=== PATIENT | female | born 1980 | race Caucasian/White ===

== ENCOUNTER 2024-08-18 13:27 | Outpatient (REF) | payer BC, SELFPAY ==
[2024-08-18 13:51] LABS: Amphetamine Screen Urine POSITIVE (Not Detect); Barbiturates, Urine Not Detected (Not Detect); Benzodiazepines Screen Urine Not Detected (Not Detect); Buprenorphine Scr Not Detected (Not Detect); Cannabinoid Screen Urine Not Detected (Not Detect); Cocaine Screen Urine Not Detected (Not Detect); Fentanyl, urine Not Detected (Not Detect); Methadone Screen, Urine Not Detected (Not Detect); Opiate Screen Urine Not Detected (Not Detect); Oxycodone Screen Urine Not Detected (Not Detect); Phencyclidine Screen Urine Not Detected (Not Detect)
== END 2024-08-18 13:28 | disposition home or self-care (01) ==
LOC: HO.LNP 13:27
PROVIDERS: Visit Provider Psychiatry & Neurology Psychiatry
DX: F10.90 Alcohol use, unspecified, uncomplicated (principal); F33.2 Major depressive disorder, recurrent severe without psychotic features; F41.1 Generalized anxiety disorder
CPT/HCPCS: 80307

== ENCOUNTER → 2024-08-19 08:35 | Outpatient (REF) | payer BC, SELFPAY ==
--- NOTE | 2024-08-19 08:40 | ECG_ITS ---
Test Reason : ROUTINE EKG Blood Pressure : */* mmHG Vent. Rate : 86 BPM Atrial Rate : 86 BPM P-R Int : 166 ms QRS Dur : 82 ms QT Int : 358 ms P-R-T Axes : 62 44 50 degrees QTcB Int : 428 ms Normal sinus rhythm Normal ECG No previous ECGs available Referred By: Jacqueline Chawla Electronically Signed By: GEORGIA STYLES MD
[2024-08-19 09:07] LABS: MANUAL DIFF FLAG NO
[2024-08-19 09:13] LABS: Basophils Percent Auto 0.4 % (0-2); Eosinophils Absolute Auto 0.1 X10*3/uL (0.0-0.4); Eosinophils Percent Auto 0.6 % (0-4); Hematocrit 49.3 % (37.0-47.0); Hemoglobin 17.3 g/dl (12.0-16.0); Imm Gran Abs Auto 0.02 X10*3/uL (0.00-0.03); Imm Gran Pct Auto 0.2 % (0.0-0.4); Lymphocytes Absolute Auto 1.1 X10*3/uL (1.2-4.9); Lymphocytes Percent Auto 12.8 % (20-40); Mean Corpuscular HGB Conc 35.1 g/dl (31.0-35.0); Mean Corpuscular Hemoglobin 30.5 pg (27.0-33.0); Mean Corpuscular Volume 86.9 fL (80.0-98.0); Mean Platelet Volume 9.5 fL (9.4-12.3); Monocytes Absolute Auto 0.4 X10*3/uL (0.1-1.2); Monocytes Percent Auto 4.5 % (2-11); Neutrophils Absolute Auto 6.7 x10*3/uL (2.0-8.3); Neutrophils Percent Auto 81.5 % (45-73); Platelet Count 279 X10*3/uL (160-400); Red Blood Count 5.67 X10*6/uL (4.20-5.50); Red Cell Distribution Width 12.9 % (11.0-16.0); White Blood Count 8.3 X10*3/uL (4.8-10.8)
[2024-08-19 09:25] LABS: Estimated Average Glucose 91 mg/dL; Hemoglobin A1C 131.1227 umol/L; Hemoglobin A1c % 4.8 % (<6.0)
[2024-08-19 09:50] LABS: Erythrocyte Sedimentation Rate 2 MM/HR (0-20)
[2024-08-19 10:18] LABS: Alanine Aminotransferase 52 U/L (0-31); Albumin Level 4.6 g/dL (3.5-5.0); Alkaline Phosphatase 99 U/L (39-117); Anion Gap 12 (12-20); Aspartate Amino Transferase 27 U/L (5-31); Bilirubin Total 0.5 mg/dL (0.0-1.0); Blood Urea Nitrogen 12 mg/dL (9-16); Calcium 10.2 mg/dL (8.4-10.2); Carbon Dioxide 29 mmol/L (22-29); Chloride 106 mmol/L (96-108); Cholesterol 187 mg/dL (<200); Estimated Glomerular Filt Rate > 60; Glucose Fasting 78 mg/dL (60-99); HDL Cholesterol 48 mg/dL (>40); Iron 92 mcg/dL (30-160); LDL Cholesterol Calculated 125 mg/dL (<100); Magnesium 2.3 mg/dL (1.6-2.6); Percent Iron Saturation 38 % (15-50); Potassium 4.7 mmol/L (3.3-5.1); Sodium 142 mmol/L (135-145); Total Iron Binding Capacity 243 mcg/dL (228-428); Total Protein 7.4 g/dL (6.5-8.0); Triglycerides 72 mg/dL (<150); Unsaturated Iron Binding 151 ug/dL
[2024-08-19 10:37] LABS: Folate 8.8 ng/mL (> or = 4.0); Vitamin B12 526 pg/mL (200-900)
[2024-08-19 10:38] LABS: Ferritin 232 ng/mL (20-250); Free T4 (Free Thyroxine) 0.97 ng/dL (0.71-1.85); Thyroid Stimulating Hormone 0.55 uIU/mL (0.32-4.0); Vitamin D 25-OH Total 40.9 ng/mL (>30)
[2024-08-19 10:56] LABS: Parathyroid Hormone Intact 38.2 pg/mL (8.7-77.1)
[2024-08-22 17:59] LABS: Homocysteine 17.5 umol/L (<10.4)
== END ==
LOC: HO.CARD 08:35
PROVIDERS: PCP Family Medicine; Visit Provider Psychiatry & Neurology Psychiatry
DX: F39 Unspecified mood [affective] disorder (principal); Z13.6 Encounter for screening for cardiovascular disorders; Z13.1 Encounter for screening for diabetes mellitus
CPT/HCPCS: 36415; 80053; 80061; 82306; 82550; 82607; 82728; 82746; 83036; 83090; 83540; 83735; 83921; 83970; 84100; 84425; 84439; 84443; 85025; 85652; 93005

== ENCOUNTER → 2024-08-19 08:40 | Outpatient (BNV) | payer BC, SELFPAY | PROVIDERS: PCP Family Medicine; Visit Provider Internal Medicine Cardiovascular Disease | DX: Z13.6 Encounter for screening for cardiovascular disorders (principal) | CPT/HCPCS: 93010 ==

== ENCOUNTER → 2024-08-22 10:30 | Outpatient (BNV) | payer BC, SELFPAY | PROVIDERS: Visit Provider Psychiatry & Neurology Psychiatry | DX: F34.89 Other specified persistent mood disorders (principal); F41.1 Generalized anxiety disorder; F43.10 Post-traumatic stress disorder, unspecified; F10.90 Alcohol use, unspecified, uncomplicated; Z86.59 Personal history of other mental and behavioral disorders | CPT/HCPCS: 99214; 99499 ==

== ENCOUNTER 2024-09-05 14:13 | Outpatient (REF) | payer BC, SELFPAY ==
[2024-09-05 14:58] LABS: Appearance Urine Clear; Color Urine Yellow; Glucose Urine UA Negative (Negative); Leukocyte Esterase Urine Trace (Negative); Nitrite Urine Negative (Negative); PH 5.5 (5.0-9.0); Specific Gravity - Urine <= 1.005 (1.005-1.025); UMIC TRIGGER UACC YES; Urine Blood Negative (Negative); Urine Ketones Negative (Negative); Urine Protein Negative (Neg-Trace)
[2024-09-05 14:59] LABS: Baso%MD 0.7 %; Eos%MD 0.7 %; Hematocrit 44.3 % (42.0-52.0); Hemoglobin 15.2 g/dl (14.0-18.0); IG%MD 0.2 %; Lymph%MD 20.5 %; Mean Corpuscular HGB Conc 34.3 g/dl (31.0-36.0); Mean Corpuscular Hemoglobin 30.9 pg (27.0-33.0); Mean Platelet Volume 10.2 fL (9.4-12.4); Mono%MD 4.4 %; Neut%MD 73.5 %; Platelet Count 239 X10*3/uL (160-400); Red Blood Count 4.92 X10*6/uL (4.60-5.80); Red Cell Distribution Width 12.9 % (11.0-16.0); White Blood Count 5.7 X10*3/uL (4.8-10.8)
[2024-09-05 15:03] LABS: Bacteria Urine None Seen (None Seen); Hyaline Casts Urine 0-2 /LPF (0-2); RBC Urine 0-2 /HPF (0-2); Squamous Epithelial Cell Urine 0-2 /HPF (0-2); WBC Urine 0-5 /HPF (0-5)
[2024-09-05 15:27] LABS: Estimated Glomerular Filt Rate > 60; Uric Acid 6.1 mg/dL (3.4-7.0)
[2024-09-05 15:42] LABS: Basophils Abs Manual 0.1 X10*3/uL (0.0-0.2); Basophils Percent Manual 2 % (0-2); Eosinophils Absolute Manual 0.1 X10*3/uL (0.0-0.4); Eosinophils Percent Manual 1 % (0-4); Lymphocytes Absolute Manual 0.9 X10*3/uL (1.2-4.9); Lymphocytes Percent Manual 15 % (20-40); Monocytes Absolute Manual 0.3 X10*3/uL (0.1-1.2); Monocytes Percent Manual 6 % (2-11); Neutrophils Percent Manual 76 % (45-73)
[2024-09-05 15:43] LABS: Platelet Estimate NORMAL (NORMAL); Platelet Morphology Comment NORMAL; RBC Morphology NORMAL
[2024-09-05 15:53] LABS: Lithium 0.11 mmol/L (0.60-1.20)
[2024-09-05 16:45] LABS: Band Neutrophils Percent 0 % (3-5); Neutrophils Absolute Manual 4.3 X10*3/uL (2.0-8.3)
[2024-09-06 05:04] LABS: Follicle Stimulating Hormone 31.3 mIU/mL (1.4-12.8); Lutenizing Hormone 19.9 mIU/mL (1.5-9.3); Sex Hormone Binding Globulin 59 nmol/L (10-50)
[2024-09-06 22:39] LABS: Erythropoietin (EPO) 9.1 mIU/mL (2.6-18.5)
[2024-09-09 16:39] LABS: Testosterone, Free 111.3 pg/mL (35.0-155.0); Testosterone, Total 708 ng/dL (250-1100)
[2024-09-17 04:32] LABS: Estradiol Ultra Sensitive 29 pg/mL (< OR = 29)
[2024-09-22 18:02] LABS: Progesterone <0.1 ng/mL (< OR = 0.2)
== END 2024-09-05 14:14 | disposition home or self-care (01) ==
LOC: HO.LAB 14:13
PROVIDERS: PCP Family Medicine; Visit Provider Psychiatry & Neurology Psychiatry
DX: Z13.89 Encounter for screening for other disorder (principal)
CPT/HCPCS: 36415; 80178; 81001; 82565; 82668; 82670; 83001; 83002; 84144; 84270; 84402; 84403; 84550; 85007; 85027

== ENCOUNTER 2024-09-23 11:00 | Outpatient (RCR) | payer BC, SELFPAY ==
[2024-08-17 12:17] VITALS: BMI 25.8
[2024-08-17 12:18] VITALS: BP 122/80; PULSE 80; TEMP 36.7
--- NOTE | 2024-08-17 13:51 | PC.ADMIT ---
Patient is a 43 year old trans male who uses they/he pronouns who was advised by his psychiatrist and therapist to attend [facility] d/t increased depression and anxiety sxs. Patient reports many stresses including realtionship stresses with his along with losing his job at the end of October and is unable to find a job in his profession in this area. Stated he, his and two children have lived in this area for 10 years. Previously lived in [place]. Patient is alert and oriented x4. He is calm and cooperative. He presented with depressed mood and anxious affect. He denied SI at present. Patient did state, I have had suicidal thoughts. Not plans to like kill myself but to harm myself Patient reports long history of self harm by cutting his thighs. Patient reports he could reach out to his therapist of PCP if needed stating, My therapist is really responsive. Seeing therapist twice a week and my PCP definitely has stood in for a therapist in a lot of ways for me. She does my hormones and she supported me coming out to my family. I could contact her if i needed to . Patient was given a copy of his safety plan if needed. Patient also reports long history of cutting his thighs since age 18. Last time he cut himself was yesterday. Asked what he could do when feeling strong emotions instead of self harm he stated exercise helps and human touch. Patient reports he drinks one beer daily for the past 5 years and will drink 3 drinks when out with friends about once a month. Patient concerned this could become a problem for him thus is attending [facility] groups while at [facility]. Medications reconciled with patient and patient's pharmacy. He reports he is taking medications as prescribed.
--- NOTE | 2024-08-18 12:42 | P.HPPSP_ITS ---
HPI Date of Service: 08/18/24 Chief Complaint: MDD Sources of Information: patient interviewed, chart reviewed and crisis/core team assessment reviewed HPI Narrative: Patient is an employed, 44-year-old trans male with history of mood disorder, depression, suicidal ideation and behaviors, self-harming self harming, problems with chronic impulse control and emotional dysregulation, previous inpatient hospitalizations. He reports reaching out to his PCP office for referral after ?having a rough time? last weekend. Patient reports working in [employer] at [employer] for the past 2 years. 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 He applied to 2 jobs out of state but would require moving to [place] or [place], in my necessitate him living there for a year as a trial prior to moving his and children. He also reports stressors within the marriage. Has been together with partner for 18 years, for 12 years and for the past 10 years things have been ?tough? especially since their daughters was born. He reports beginning his transition about 6 years ago. He has been on Prozac since his 20s and and is currently managed on a regime of medications which also include Wellbutrin XL, Vyvanse, Trileptal, Geodon, and gabapentin. He feels that trying to address some of his trauma may have been destabilizing in recent years. He shares complex family history which includes his paternal grandmother who had terminal illness and by ?DIY- patient assisted suicide? at the hands of patient's paternal grandfather who then killed himself. Both by GSW. Past Psychiatric History: Previous IPLOCs, last admission was 2018 at [facility] PHP: None Previous medication trials: Prozac, Wellbutrin XL, BuSpar, Strattera, Abilify, Latuda, Geodon, Risperdal (helped with impulsive behaviors but not w depression), Zyprexa x1 week, propranolol, gabapentin, prazosin, possibly Vraylar CURRENT MEDICATIONS: Vyvanse 70 mg daily? Wellbutrin XL 150 mg daily Fluoxetine 60 mg daily Oxcarbazepine 600 mg b.i.d. Ziprasidone 20 mg daily at bedtime Hydroxyzine 10-20 mg b.i.d. PRN anxiety Finasteride 2.5 mg daily Testosterone cypionate (200 mg/mL) 0.4 mL subcut weekly Zepbound 15 mg subcutaneous Q weekly [facility] Medical History (Updated 08/26/24 @ 10:20 by Jacqueline Chawla MD) Asthma Herniation of intervertebral disc at L3-L4 level Chronic back pain Surgical History (Updated 08/17/24 @ 12:15 by Ursula Falcon RN) H/O: hysterectomy H/O mastectomy Diagnostics Vital Signs (24Hr): BMI result Body Mass Index 25.8 Meds/Allergies Meds Home Medications ?Medication ?Instructions ?Recorded ?Confirmed ?Type bupropion HCl 150 mg 24 hr tablet, 150 mg PO DAILY 08/17/24 08/17/24 History extended release finasteride 5 mg tablet 2.5 mg PO DAILY 08/17/24 08/17/24 History fluoxetine 20 mg capsule 60 mg PO DAILY 08/17/24 08/17/24 History gabapentin 100 mg capsule See Rx Instructions .Route .COMPLEX 08/17/24 08/17/24 History hydroxyzine HCl 10 mg tablet 10 - 20 mg PO BID PRN Anxiety 08/17/24 08/17/24 History lisdexamfetamine 70 mg capsule 70 mg PO DAILY 08/17/24 08/17/24 History testosterone cypionate 200 mg/mL See Rx Instructions .Route .COMPLEX 08/17/24 08/17/24 History intramuscular oil tirzepatide (weight loss) 15 15 mg subcut QWEEK 08/17/24 08/17/24 History mg/0.5 mL subcutaneous pen injector (Zepbound) Allergies Allergies Allergy/AdvReac Type Severity Reaction Status Date / Time No Known Allergies Allergy Verified 08/17/24 12:15 Mental Status Exam Mental Status Exam Narrative: Alert, oriented, in no acute distress. Calm, cooperative, engaged. Uptight, muscle tension, physically withdrawn. No psychomotor agitation or neurovegetative retardation. Eye contact intermittent. Mood depressed, affect constricted. Speech normal, mildly delayed when occupied in articulating thoughts.. Thought process linear, coherent. Thought content related to stressors, fears of abandonment, transient helplessness, denies hopelessness, denies SI or HI. Intermittent thoughts of self harm, denies acting on these thoughts in interim. No paranoia or delusional content elicited. No evidence of psychosis. Insight and judgment - fair but adequate. Assessment & Plan Assessment & Plan (1) MDD (major depressive disorder), recurrent severe, without psychosis: Status: Acute Code(s): F33.2 - Major depressive disorder, recurrent severe without psychotic features (2) Other specified persistent mood disorders: Status: Acute Code(s): F34.89 - Other specified persistent mood disorders (3) Alcohol use disorder: Status: Acute Code(s): F10.90 - Alcohol use, unspecified, uncomplicated (4) MARY (generalized anxiety disorder): Status: Acute Code(s): F41.1 - Generalized anxiety disorder (5) Complex posttraumatic stress disorder: Status: Acute Code(s): F43.10 - Post-traumatic stress disorder, unspecified Plan Admit to PHP VS reviewed: afebrile, BP 122/80;?80 bpm continue other regular medications Vyvanse 70 mg daily? Wellbutrin XL 150 mg daily Fluoxetine 60 mg daily Oxcarbazepine 600 mg b.i.d. Ziprasidone 20 mg daily at bedtime Hydroxyzine 10-20 mg b.i.d. PRN anxiety Finasteride 2.5 mg daily Testosterone cypionate (200 mg/mL) 0.4 mL subcut weekly Zepbound 15 mg subcutaneous Q weekly Routine lab work ordered as indicated EKG, routine for baseline QTc for medication considerations as indicated UDS as indicated MassPat reviewed Continue to monitor as per protocol Patient educated on: diagnosis, medication risk/benefits and substance abuse Informed Consent: understands Reason for continued partial hosp. stay Substantial Risk for: harm to self, inability to function, rapid decompensation and med/psych decompensation Certification I certify that partial hospital treatment is medically necessary due to the symptoms and problems resulting from the patient's mental illness and the failure to treat the patient at the partial hospital level of care would likely result in the patient requiring inpatient psychiatric care which could not be prevented at a less intensive level of care. Time Spent With Patient Time: Total time managing care of this patient today __90__ minutes.
--- NOTE | 2024-08-18 15:26 | HO.PHP ---
Pt's case was opened and reviewed in treatment team.
--- NOTE | 2024-08-19 14:41 | HO.PHP ---
This newspaper writer met with Jonny at the end of the day stating he is dysregulated. He reported the urge to self-harm is high during this time especially on a Thursday. This newspaper writer explored during treatment plan review his hx of self-harming behavior. His last time self-harming was Thursday. He shared it has been infrequent during his adult life, he started at age [age], and it correlates with abandonment issues. There has been an increase in thoughts the last couple weeks. This newspaper writer explored why this time was triggering in which he stated he has his child's soccer game was at 5. He stated that he had plans to go on a hike with his dog, but he struggles with self-harm historically on hikes and in his car. This newspaper writer encouraged calling his outpatient supports to update them on the plan with treatment plan review. If no success, he could call crisis lines in which a couple experiences he has had were helpful in the past. This newspaper writer also suggested maybe trying to hike or even walk in a different location that is less triggering. All these suggestions appeared receptive. Pt left program for the day and reported no immediate safety concerns.
--- NOTE | 2024-08-22 20:23 | P.EN_ITS ---
Event Note Date of Service: 08/23/24 Event Note: Return call to Rafia Tamayo [phone], therapist for Jonny. She she is reaching out to me to update me on Jonny who has spent the night in the emergency room at [facility] last night. He had self presented upon the encouragement of his therapist and PCP after a severe bout of self-harm which required medical attention/stitches in his upper left shoulder. He was evaluated by CS so however was felt not to meet criteria for inpatient stay. Therapist had encouraged due to stay overnight for observation in the emergency room and they had agreed for due to discharged straight back to partial this morning. He is in attendance today. Therapist notes that the situation is difficult. Apparently Jonny had cut himself at the prospect of possibly not getting to continue doing therapy with Rafia while he is at partial. Therapist and PCP Dr. Jade Moser both agree that this is unattainable and had advised for IPLOC to [facility] given their level of concern. He said that [facility] did not outright refuse but is reluctant to go and has been feeling out whether or not he will need to. Therapist shares their hopes that this radio news writer will be supportive of their stance as his outpatient providers, and is certainly concerning situation especially with Jonny stance in regards to seeing his therapist. I plan to meet with patient later today and will discuss. Time Spent With Patient Time: Total time managing care of this patient today __15__ minutes.
--- NOTE | 2024-08-22 20:24 | P.PNPSP_ITS ---
Subjective Subjective Date of Service: 08/22/24 Reason For Visit: MDD Interim History: I meet with Kassi who also shares these events from over the weekend. Things are left currently up in the air. Jonny says he does not want to go inpatient but he also does not want to lose his therapist and is trying to stress out if this will be a deal Breaker whether or not he complies with their recommendations for inpatient. He cites reasons of chronic fears of abandonment as rationale for continuing to work with his therapist while he is at [facility]. He does not seem to have insight as to how he is inadvertently min trying to manipulate his therapist into complying or had otherwise self-harm. He is his current stance is that he would like not to go to inpatient but is only willing to go if he understood that he would not be able to see his therapist anymore. Due to roommate tense but able to have an effective conversation shares struggles with emotional regulation does not feel his medication has been very helpful he continues on ziprasidone 40 mg at night and has not tried to take this as a 20 mg dose during the day to see if this can help curb some of the impulsive aggression. Trileptal has been perhaps helpful for irritability but just reports still feeling very depressed, anxious describes a lot of physical anxiety muscle tension palpitations feeling on edge. Feels readily able to start having panic symptoms. He is noted to be on combination of Wellbutrin Prozac and Vyvanse in the morning without a beta-epi or alpha agonist to help mitigate some of the physical activation of these medications. He is open to starting guanfacine to see if he can better tolerate these medications and cut down on anxiety anxiety. Alternatively could try prazosin as well for physical anxiety. We discussed starting Lamictal. We also discussed whether lithium would be helpful in treating depression mood disorder impulsivity self-harm SI tightened emotional regulation. He currently denies any thoughts of harming self or others he currently denies any SI but shares having a lot of anticipatory dread over whether he may lose his therapist which he says only reinforces his fear of abandonment. Medication Compliance: Yes Side effects from medications: No Attending Groups: Yes Review of Systems Acute medical concerns: No Diagnostics Vital Signs (24Hr): BMI result Body Mass Index 25.8 Assessment & Plan Assessment & Plan (1) Other specified persistent mood disorders: Status: Acute Code(s): F34.89 - Other specified persistent mood disorders (2) MARY (generalized anxiety disorder): Status: Acute Code(s): F41.1 - Generalized anxiety disorder (3) Complex posttraumatic stress disorder: Status: Acute Code(s): F43.10 - Post-traumatic stress disorder, unspecified (4) Alcohol use disorder: Status: Acute Code(s): F10.90 - Alcohol use, unspecified, uncomplicated (5) History of borderline personality disorder: Status: Acute Code(s): Z86.59 - Personal history of other mental and behavioral disorders Plan Continue PHP start lamotrigine 25 mg qd start guanfacine ER 1 mg qam along with WB, Vyv (vs prazosin) cont Vyvanse 70 mg daily (lower?)? cont Wellbutrin XL 150 mg daily cont fluoxetine 60 mg daily cont oxcarbazepine 600 mg b.i.d. (consider transitioning to a different SGA cont ziprasidone 40 mg daily at bedtime start ziprasodine 20 mg daily PRN agitation (if ineffective, will trial risperidone vs older cont hydroxyzine 10-20 mg b.i.d. PRN anxiety continue other regular medications: Finasteride 2.5 mg daily, estosterone cypionate (200 mg/mL) 0.4 mL subcut weekly Zepbound 15 mg subcutaneous Q weekly Routine lab work reviewed VS reviewed: afebrile, BP 122/80;?80 bpm Continue to monitor as per protocol Patient educated on: diagnosis and medication risk/benefits Informed Consent: understands Reason for contiued partial hosp. stay Substantial Risk for: inability to function and med/psych decompensation Certification I certify that partial hospital treatment is medically necessary due to the symptoms and problems resulting from the patient's mental illness and the failure to treat the patient at the partial hospital level of care would likely result in the patient requiring inpatient psychiatric care which could not be prevented at a less intensive level of care. Total time managing care of this patient today __60__ minutes. Discharge Plan Discharge Attending provider: Jacqueline Chawla Medications: New guanfacine 1 mg tablet extended release 24 hr 1 mg PO DAILY Qty: 30 0RF lamotrigine 25 mg tablet 25 mg PO DAILY 14 Days Qty: 14 0RF Continued ziprasidone HCl 20 mg capsule 20 mg PO BEDTIME oxcarbazepine 600 mg tablet 600 mg PO BID gabapentin 100 mg capsule See Rx Instructions .ROUTE .COMPLEX Rx Instructions: Take one capsule in the morning and two capsules in the evening. testosterone cypionate 200 mg/mL oil See Rx Instructions .ROUTE .COMPLEX Rx Instructions: Take 0.4 ml once a week. Patient takes on . hydroxyzine HCl 10 mg tablet 10 - 20 mg PO BID PRN (Reason: Anxiety) fluoxetine 20 mg Capsule 60 mg PO DAILY Rx Instructions: Take three caps daily. finasteride 5 mg tablet 2.5 mg PO DAILY bupropion HCl 150 mg tablet extended release 24 hr 150 mg PO DAILY lisdexamfetamine 70 mg capsule 70 mg PO DAILY No Action Zepbound 15 mg/0.5 mL pen injector 15 mg SUBCUT QWEEK Print Language: Singaporean
--- NOTE | 2024-08-24 15:15 | HO.PHP ---
Jonny left group 10 minutes early and did not return, repairer typewriter checked in with Jonny after group around 11:45. Pt stated he was struggling to focus because financial stressors and concerns about work and providers were on his mind. Jonny expressed worries of finding a new job, feels he may have to consider going on disability and feels that is a lot to process. Pt expressed a desire to work but worries his mental health impacts his ability to function. Pt shared he has a fear of abandonment and recognizes he gets attached in an unhealthy way with caregivers. States he has an appt with his PCP tomorrow and feels worried she will stop seeing him due to his increased reliance on her, stated he called her on Thursday after he self-harmed. Stated she supported him through his crisis evaluation at the ED in [facility], but he felt she was upset, stated he asked her if she was mad and she said no but did express feeling worried about him. Pt stated he recognizes he has over-utilized her support and feels she will set a boundary. Jonny expressed insight, recognizes boundaries increase feelings of abandonment but also expressed a strong desire to respect the boundaries of others and have healthy relationships without feeling rejected or panic . Jonny and this repairer typewriter were able to come up with ways to cope after his meeting with his PCP to prevent self-harming should she set a boundary. Pt acknowledged he engages in self-harm after he feels rejected or abandoned and struggles to use healthier alternatives because they do not provide the same relief. Jonny was encouraged to engage in the alternatives with a supportive peer, he was also provided with a Wellness Recovery Action Plan to complete on his own that identifies what he, his supports and providers can do to best help him when he is in distress, then pt was encouraged to share the plan with his and his PCP. Jonny agreed. Jonny was also provided info to 3 different respites: [facility], [facility] in [place] and [facility], as alternatives to inpatient since pt expressed a strong desire to prevent hospitalization. Pt was also provided a resource for his employment/financial situation. Jonny expressed gratitude for meeting with repairer typewriter 1:1, expressed feeling much better after speaking, Jonny did not report SI, denied thoughts to self-harm. Pt returned to group. Pt affect improved during conversation, anxious, tense, slow to processing observed, then some brightening affect and increased hope with options and plans in place.
--- NOTE | 2024-08-24 23:14 | HO.PHPPROGNO ---
Subjective Subjective Date of Service: 08/23/24 Reason For Visit: MDD Diagnostics Vital Signs (24Hr): BMI result Body Mass Index 25.8 Assessment & Plan Assessment & Plan (1) Borderline personality disorder: Status: Acute Code(s): F60.3 - Borderline personality disorder Plan Continue PHP continue lamotrigine 25 mg qd continue guanfacine ER 1 mg qam along with WB, Vyv (vs prazosin) cont Vyvanse 70 mg daily (lower?)? cont Wellbutrin XL 150 mg daily cont fluoxetine 60 mg daily cont oxcarbazepine 600 mg b.i.d. (consider transitioning to a different SGA cont ziprasidone 40 mg daily at bedtime start ziprasodine 20 mg daily PRN agitation (if ineffective, will trial risperidone vs older cont hydroxyzine 10-20 mg b.i.d. PRN anxiety continue other regular medications: Finasteride 2.5 mg daily, estosterone cypionate (200 mg/mL) 0.4 mL subcut weekly Zepbound 15 mg subcutaneous Q weekly Routine lab work reviewed VS reviewed: afebrile, BP 122/80;?80 bpm Continue to monitor as per protocol Certification I certify that partial hospital treatment is medically necessary due to the symptoms and problems resulting from the patient's mental illness and the failure to treat the patient at the partial hospital level of care would likely result in the patient requiring inpatient psychiatric care which could not be prevented at a less intensive level of care. Total time managing care of this patient today ____ minutes. Discharge Plan Discharge Attending provider: Jacqueline Chawla Medications: New risperidone 0.25 mg tablet 0.25 mg PO BID Qty: 60 0RF risperidone 1 mg tablet 1 mg PO BID Qty: 30 0RF lurasidone 40 mg tablet 40 mg PO QPM Qty: 30 0RF Rx Instructions: must administer with food (at least 350 calories) gabapentin 300 mg capsule 300 mg PO TID Qty: 30 0RF lithium carbonate 300 mg tablet extended release 300 mg PO DAILY Qty: 14 0RF gabapentin 600 mg tablet 600 mg PO TID Qty: 30 0RF lisdexamfetamine 50 mg capsule 50 mg PO QAM Qty: 10 0RF Rx Instructions: Partial Fill upon patient request. naltrexone 50 mg tablet 25 mg PO BEDTIME Qty: 20 0RF levomefolate calcium 7.5 mg tablet 7.5 mg PO DAILY Qty: 30 2RF clonazepam 0.5 mg tablet 0.5 mg PO DAILY Qty: 16 0RF Continued testosterone cypionate 200 mg/mL oil See Rx Instructions .ROUTE .COMPLEX Rx Instructions: Take 0.4 ml once a week. Patient takes on . hydroxyzine HCl 10 mg tablet 10 - 20 mg PO BID PRN (Reason: Anxiety) fluoxetine 20 mg Capsule 60 mg PO DAILY Rx Instructions: Take three caps daily. finasteride 5 mg tablet 2.5 mg PO DAILY bupropion HCl 150 mg tablet extended release 24 hr 150 mg PO DAILY lorazepam 0.5 mg tablet 0.5 mg PO DAILY PRN (Reason: anxiety) Qty: 12 0RF prazosin 1 mg capsule 1 mg PO BID Qty: 60 0RF Rx Instructions: =Dose Change= (Patient takes 3 mg BID) Changed lamotrigine 25 mg tablet See Rx Instructions .ROUTE .COMPLEX Qty: 90 0RF Rx Instructions: take 2 tablets po daily x 2 weeks, then increase to 3 tablets po daily prazosin 2 mg capsule 2 mg PO BID Qty: 60 0RF Rx Instructions: =Dose Change= (Patient takes 3 mg BID) gabapentin 100 mg capsule 100 mg PO TID Qty: 30 0RF Discontinued ziprasidone HCl 20 mg capsule 20 mg PO BEDTIME oxcarbazepine 600 mg tablet 600 mg PO BID lisdexamfetamine 70 mg capsule 70 mg PO DAILY No Action Zepbound 15 mg/0.5 mL pen injector 15 mg SUBCUT QWEEK Stand Alone Forms: Patient Portal Discharge page Print Language: Kuwaiti
--- NOTE | 2024-08-24 23:37 | HO.PHPPROGNO ---
Subjective Subjective Date of Service: 08/23/24 Reason For Visit: MDD Diagnostics Vital Signs (24Hr): BMI result Body Mass Index 25.8 Assessment & Plan Certification I certify that partial hospital treatment is medically necessary due to the symptoms and problems resulting from the patient's mental illness and the failure to treat the patient at the partial hospital level of care would likely result in the patient requiring inpatient psychiatric care which could not be prevented at a less intensive level of care. Total time managing care of this patient today ____ minutes. Discharge Plan Discharge Attending provider: Jacqueline Chawla Medications: New guanfacine 1 mg tablet extended release 24 hr 1 mg PO DAILY Qty: 30 0RF lamotrigine 25 mg tablet 25 mg PO DAILY 14 Days Qty: 14 0RF risperidone 0.25 mg tablet 0.25 mg PO BID Qty: 60 0RF lithium carbonate 150 mg capsule 150 mg PO BID Qty: 30 0RF Continued ziprasidone HCl 20 mg capsule 20 mg PO BEDTIME oxcarbazepine 600 mg tablet 600 mg PO BID gabapentin 100 mg capsule See Rx Instructions .ROUTE .COMPLEX Rx Instructions: Take one capsule in the morning and two capsules in the evening. testosterone cypionate 200 mg/mL oil See Rx Instructions .ROUTE .COMPLEX Rx Instructions: Take 0.4 ml once a week. Patient takes on . hydroxyzine HCl 10 mg tablet 10 - 20 mg PO BID PRN (Reason: Anxiety) fluoxetine 20 mg Capsule 60 mg PO DAILY Rx Instructions: Take three caps daily. finasteride 5 mg tablet 2.5 mg PO DAILY bupropion HCl 150 mg tablet extended release 24 hr 150 mg PO DAILY lisdexamfetamine 70 mg capsule 70 mg PO DAILY No Action Zepbound 15 mg/0.5 mL pen injector 15 mg SUBCUT QWEEK Print Language: Ukrainian
--- NOTE | 2024-08-26 13:33 | P.PNPSP_ITS ---
Subjective Subjective Date of Service: 08/26/24 Reason For Visit: MDD Diagnostics Vital Signs (24Hr): BMI result Body Mass Index 25.8 Assessment & Plan Certification I certify that partial hospital treatment is medically necessary due to the symptoms and problems resulting from the patient's mental illness and the failure to treat the patient at the partial hospital level of care would likely result in the patient requiring inpatient psychiatric care which could not be prevented at a less intensive level of care. Total time managing care of this patient today ____ minutes. Discharge Plan Discharge Attending provider: Jacqueline Chawla Medications: New guanfacine 1 mg tablet extended release 24 hr 1 mg PO DAILY Qty: 30 0RF lamotrigine 25 mg tablet 25 mg PO DAILY 14 Days Qty: 14 0RF risperidone 0.25 mg tablet 0.25 mg PO BID Qty: 60 0RF lithium carbonate 150 mg capsule 150 mg PO BID Qty: 30 0RF risperidone 1 mg tablet 1 mg PO BID Qty: 30 0RF Continued ziprasidone HCl 20 mg capsule 20 mg PO BEDTIME oxcarbazepine 600 mg tablet 600 mg PO BID gabapentin 100 mg capsule See Rx Instructions .ROUTE .COMPLEX Rx Instructions: Take one capsule in the morning and two capsules in the evening. testosterone cypionate 200 mg/mL oil See Rx Instructions .ROUTE .COMPLEX Rx Instructions: Take 0.4 ml once a week. Patient takes on . hydroxyzine HCl 10 mg tablet 10 - 20 mg PO BID PRN (Reason: Anxiety) fluoxetine 20 mg Capsule 60 mg PO DAILY Rx Instructions: Take three caps daily. finasteride 5 mg tablet 2.5 mg PO DAILY bupropion HCl 150 mg tablet extended release 24 hr 150 mg PO DAILY lisdexamfetamine 70 mg capsule 70 mg PO DAILY lorazepam 0.5 mg tablet 0.5 mg PO DAILY PRN (Reason: anxiety) Qty: 7 0RF prazosin 1 mg capsule 1 mg PO BID Qty: 30 0RF No Action Zepbound 15 mg/0.5 mL pen injector 15 mg SUBCUT QWEEK Print Language: [place]orese
--- NOTE | 2024-09-01 19:04 | HO.PHPPROGNO ---
Subjective Subjective Date of Service: 09/01/24 Reason For Visit: MDD Diagnostics Vital Signs (24Hr): BMI result Body Mass Index 25.8 Assessment & Plan Certification I certify that partial hospital treatment is medically necessary due to the symptoms and problems resulting from the patient's mental illness and the failure to treat the patient at the partial hospital level of care would likely result in the patient requiring inpatient psychiatric care which could not be prevented at a less intensive level of care. Total time managing care of this patient today ____ minutes. Discharge Plan Discharge Attending provider: Jacqueline Chawla Medications: New guanfacine 1 mg tablet extended release 24 hr 1 mg PO DAILY Qty: 30 0RF lamotrigine 25 mg tablet 25 mg PO DAILY 14 Days Qty: 14 0RF risperidone 0.25 mg tablet 0.25 mg PO BID Qty: 60 0RF lithium carbonate 150 mg capsule 150 mg PO BID Qty: 30 0RF risperidone 1 mg tablet 1 mg PO BID Qty: 30 0RF lurasidone 40 mg tablet 40 mg PO QPM Qty: 30 0RF Rx Instructions: must administer with food (at least 350 calories) Continued ziprasidone HCl 20 mg capsule 20 mg PO BEDTIME oxcarbazepine 600 mg tablet 600 mg PO BID gabapentin 100 mg capsule See Rx Instructions .ROUTE .COMPLEX Rx Instructions: Take one capsule in the morning and two capsules in the evening. testosterone cypionate 200 mg/mL oil See Rx Instructions .ROUTE .COMPLEX Rx Instructions: Take 0.4 ml once a week. Patient takes on . hydroxyzine HCl 10 mg tablet 10 - 20 mg PO BID PRN (Reason: Anxiety) fluoxetine 20 mg Capsule 60 mg PO DAILY Rx Instructions: Take three caps daily. finasteride 5 mg tablet 2.5 mg PO DAILY bupropion HCl 150 mg tablet extended release 24 hr 150 mg PO DAILY lisdexamfetamine 70 mg capsule 70 mg PO DAILY lorazepam 0.5 mg tablet 0.5 mg PO DAILY PRN (Reason: anxiety) Qty: 7 0RF prazosin 1 mg capsule 1 mg PO BID Qty: 30 0RF No Action Zepbound 15 mg/0.5 mL pen injector 15 mg SUBCUT QWEEK Stand Alone Forms: Patient Portal Discharge page Print Language: Mozambican
--- NOTE | 2024-09-02 10:55 | PC.NURSE ---
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
--- NOTE | 2024-09-04 00:57 | HO.PHPPROGNO ---
Subjective Subjective Date of Service: 09/02/24 Reason For Visit: MDD Interim History: Has thus far tolerated start of Latuda with dose decreases of oxcarbazepine, which has now been reduced from 600 mg BID to 300 mg BID over course of week Latuda at 40 mg tongiht and will continue at this dose over the weekend. Anticipate increasing to 60 mg Thursday.. Denies any irritability. Still struggling with anxiety, existential angst pertaining to relationship attachments, fear of abandonment. Last SIB still was Sun 08/21, had some strong impulses last weekend but was able to stave off acting and says this week it has there have been fewer triggering moments, however when in the moment, the impulse to cut can still be very strong. A few particular situations occurred that were triggering but overall feeling less easily provoked. Mood still some up and downs, depression is there but also had times where it lets up some too. Body anxiety is intense and persistent. He can feel the prazosin helping a little at 2 mg, denies any adverse effects. Still feels there is room for improvement, it's hard not to worry about everything all at once . He is feeling forced in DBT and we agree to revisit this week, for now will focus on the day and where he is at now. WIll return to discussing whether DBT (the 12 week program) is a good fit in the context of his job and family. He is still hoping to return to school after [facility] to resume his job as there are only a few weeks left to the end of the semester and is hoping to tie up loose ends. 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 Medication Compliance: Yes Side effects from medications: No Attending Groups: Yes Review of Systems Acute medical concerns: No Mental Status Exam Mental Status Exam Narrative: Alert, oriented, in no acute distress. Calm, cooperative, engaged. Uptight, muscle tension, physically withdrawn. No psychomotor agitation or neurovegetative retardation. Eye contact intermittent. Mood depressed, affect constricted. Speech normal, mildly delayed when occupied in articulating thoughts.. Thought process linear, coherent. Thought content related to stressors, fears of abandonment, transient helplessness, denies hopelessness, denies SI or HI. Intermittent thoughts of self harm, denies acting on these thoughts in interim. No paranoia or delusional content elicited. No evidence of psychosis. Insight and judgment - fair but adequate. Diagnostics Vital Signs (24Hr): BMI result Body Mass Index 25.8 Assessment & Plan Assessment & Plan (1) Complex posttraumatic stress disorder: Status: Acute Code(s): F43.10 - Post-traumatic stress disorder, unspecified (2) Other specified persistent mood disorders: Status: Acute Code(s): F34.89 - Other specified persistent mood disorders (3) MARY (generalized anxiety disorder): Status: Acute Code(s): F41.1 - Generalized anxiety disorder (4) Alcohol use disorder: Status: Acute Code(s): F10.90 - Alcohol use, unspecified, uncomplicated (5) History of borderline personality disorder: Status: Acute Code(s): Z86.59 - Personal history of other mental and behavioral disorders Plan Extend stay at [facility] risperidone 0.25 mg BID - TID (AM/later afternoon) + PRN dose lower oxcarbazepine to 450 mg/d (300/150) increase gabapentin to 400 mg BID (AM, afternoon) continue gabapentin 1200 mg qhs continue Latuda 40 mg qd w supper (due to increase to 60 mg on Thursday) continue lithium 150 mg BID (check level on Thursday, then will transition to 300 mg ER qd at ) continue prazosin 2 mg qam (consider increasing - will check vitals on Thursday) increase prazosin in afternoon to 2 mg daily in afternoon continue fluoxetine 60 mg qam continue Wellbutrin XL 150 mg qam continue Vyvanse 70 mg qam (consider lowering dose to 50 mg next week) Patient educated on: diagnosis and medication risk/benefits Informed Consent: understands Reason for contiued partial hosp. stay Substantial Risk for: inability to function, rapid decompensation and med/psych decompensation Certification I certify that partial hospital treatment is medically necessary due to the symptoms and problems resulting from the patient's mental illness and the failure to treat the patient at the partial hospital level of care would likely result in the patient requiring inpatient psychiatric care which could not be prevented at a less intensive level of care. Total time managing care of this patient today __40__ minutes. Discharge Plan Discharge Attending provider: Jacqueline Chawla Medications: New risperidone 0.25 mg tablet 0.25 mg PO BID Qty: 60 0RF risperidone 1 mg tablet 1 mg PO BID Qty: 30 0RF lurasidone 40 mg tablet 40 mg PO QPM Qty: 30 0RF Rx Instructions: must administer with food (at least 350 calories) prazosin 2 mg capsule 2 mg PO QAM Qty: 30 0RF gabapentin 300 mg capsule 300 mg PO TID Qty: 30 0RF lithium carbonate 300 mg tablet extended release 300 mg PO DAILY Qty: 14 0RF gabapentin 600 mg tablet 600 mg PO TID Qty: 30 0RF lisdexamfetamine 50 mg capsule 50 mg PO QAM Qty: 10 0RF Rx Instructions: Partial Fill upon patient request. Continued gabapentin 100 mg capsule See Rx Instructions .ROUTE .COMPLEX Rx Instructions: Take one capsule in the morning and two capsules in the evening. testosterone cypionate 200 mg/mL oil See Rx Instructions .ROUTE .COMPLEX Rx Instructions: Take 0.4 ml once a week. Patient takes on . hydroxyzine HCl 10 mg tablet 10 - 20 mg PO BID PRN (Reason: Anxiety) fluoxetine 20 mg Capsule 60 mg PO DAILY Rx Instructions: Take three caps daily. finasteride 5 mg tablet 2.5 mg PO DAILY bupropion HCl 150 mg tablet extended release 24 hr 150 mg PO DAILY lisdexamfetamine 70 mg capsule 70 mg PO DAILY lorazepam 0.5 mg tablet 0.5 mg PO DAILY PRN (Reason: anxiety) Qty: 7 0RF prazosin 1 mg capsule 1 mg PO BID Qty: 30 0RF Rx Instructions: continue to take 3 mg (one 1 mg capsule + one 2 mg capsule) po daily in AM, and one 1 mg capsule daily at bedtime Changed lamotrigine 25 mg tablet See Rx Instructions .ROUTE .COMPLEX Qty: 90 0RF Rx Instructions: take 2 tablets po daily x 2 weeks, then increase to 3 tablets po daily Discontinued ziprasidone HCl 20 mg capsule 20 mg PO BEDTIME oxcarbazepine 600 mg tablet 600 mg PO BID No Action Zepbound 15 mg/0.5 mL pen injector 15 mg SUBCUT QWEEK Stand Alone Forms: Patient Portal Discharge page Print Language: Swedish
--- NOTE | 2024-09-06 22:34 | HO.PHPPROGNO ---
Subjective Subjective Date of Service: 09/06/24 Reason For Visit: MDD Interim History: Patient seen for follow-up. ?I got a little stressed in his last group?. He reports waking up this morning and ?felt good then something set it off in the addiction group... Maybe there were some contributing factors . He notes he a delayed upon taking his 1st Risperdal today at 11:30 after getting set off in group. He agrees he does better when his doses are taken regularly 0.5 mg 3 times a day. He sometimes takes a 4th if feeling particularly triggered. We discussed possibly trying 0.75 mg for 1 of the doses to see if this is tolerated and can provide longer coverage. He denies any adverse effects. He also shares finding out that he did not get a job that he applied for in the in the area ?I did not get it so that sucks?. He started Latuda 60 mg last night as well as switching to lithium ER 300 mg from IR lithium BID. Medication Compliance: Yes Side effects from medications: No Attending Groups: Yes Review of Systems Acute medical concerns: No Mental Status Exam Mental Status Exam Narrative: Alert, oriented, in no acute distress. Calm, cooperative, engaged. Uptight, muscle tension, physically withdrawn. No psychomotor agitation or neurovegetative retardation. Eye contact intermittent. Mood depressed, affect constricted. Speech normal, mildly delayed when occupied in articulating thoughts.. Thought process linear, coherent. Thought content related to stressors, fears of abandonment, transient helplessness, denies hopelessness, denies SI or HI. Intermittent thoughts of self harm, denies acting on these thoughts in interim. No paranoia or delusional content elicited. No evidence of psychosis. Insight and judgment - fair but adequate. Diagnostics Vital Signs (24Hr): BMI result Body Mass Index 25.8 Assessment & Plan Assessment & Plan (1) MDD (major depressive disorder), recurrent severe, without psychosis: Status: Acute Code(s): F33.2 - Major depressive disorder, recurrent severe without psychotic features (2) Other specified persistent mood disorders: Status: Acute Code(s): F34.89 - Other specified persistent mood disorders (3) Alcohol use disorder: Status: Acute Code(s): F10.90 - Alcohol use, unspecified, uncomplicated (4) MARY (generalized anxiety disorder): Status: Acute Code(s): F41.1 - Generalized anxiety disorder (5) Complex posttraumatic stress disorder: Status: Acute Code(s): F43.10 - Post-traumatic stress disorder, unspecified Plan Extend stay at [facility] to 09/16 continue Vyvanse 50 mg qam (better tolerated) continue Wellbutrin XL 150 mg qam continue fluoxetine 60 mg qam continue prazosin 2 mg qam (will titrate to 3 mg as tolerated) continue prazosin 2 mg daily in afternoon continue risperidone 2 mg/d (usually as 0.5 - 1 mg BID - TID ) in AM/later afternoon + PRN dose continue gabapentin 400 mg BID (AM, afternoon) continue gabapentin 1200 mg qhs increased Latuda to 60 mg qd w supper (yesterday) - continue to cross titrate to 80 mg over weekend, and taper off [facility] decrease oxcarbazepine to 150 mg BID switched to ER lithium 300 mg qd in evening (yesterday) start naltrexone 25 mg qhs Certification I certify that partial hospital treatment is medically necessary due to the symptoms and problems resulting from the patient's mental illness and the failure to treat the patient at the partial hospital level of care would likely result in the patient requiring inpatient psychiatric care which could not be prevented at a less intensive level of care. Total time managing care of this patient today ____ minutes. Discharge Plan Discharge Attending provider: Jacqueline Chawla Medications: New risperidone 0.25 mg tablet 0.25 mg PO BID Qty: 60 0RF risperidone 1 mg tablet 1 mg PO BID Qty: 30 0RF lurasidone 40 mg tablet 40 mg PO QPM Qty: 30 0RF Rx Instructions: must administer with food (at least 350 calories) gabapentin 300 mg capsule 300 mg PO TID Qty: 30 0RF lithium carbonate 300 mg tablet extended release 300 mg PO DAILY Qty: 14 0RF gabapentin 600 mg tablet 600 mg PO TID Qty: 30 0RF lisdexamfetamine 50 mg capsule 50 mg PO QAM Qty: 10 0RF Rx Instructions: Partial Fill upon patient request. naltrexone 50 mg tablet 25 mg PO BEDTIME Qty: 20 0RF levomefolate calcium 7.5 mg tablet 7.5 mg PO DAILY Qty: 30 2RF clonazepam 0.5 mg tablet 0.5 mg PO DAILY Qty: 16 0RF Continued testosterone cypionate 200 mg/mL oil See Rx Instructions .ROUTE .COMPLEX Rx Instructions: Take 0.4 ml once a week. Patient takes on . hydroxyzine HCl 10 mg tablet 10 - 20 mg PO BID PRN (Reason: Anxiety) fluoxetine 20 mg Capsule 60 mg PO DAILY Rx Instructions: Take three caps daily. finasteride 5 mg tablet 2.5 mg PO DAILY bupropion HCl 150 mg tablet extended release 24 hr 150 mg PO DAILY lorazepam 0.5 mg tablet 0.5 mg PO DAILY PRN (Reason: anxiety) Qty: 12 0RF prazosin 1 mg capsule 1 mg PO BID Qty: 60 0RF Rx Instructions: =Dose Change= (Patient takes 3 mg BID) Changed lamotrigine 25 mg tablet See Rx Instructions .ROUTE .COMPLEX Qty: 90 0RF Rx Instructions: take 2 tablets po daily x 2 weeks, then increase to 3 tablets po daily prazosin 2 mg capsule 2 mg PO BID Qty: 60 0RF Rx Instructions: =Dose Change= (Patient takes 3 mg BID) gabapentin 100 mg capsule 100 mg PO TID Qty: 30 0RF Discontinued ziprasidone HCl 20 mg capsule 20 mg PO BEDTIME oxcarbazepine 600 mg tablet 600 mg PO BID lisdexamfetamine 70 mg capsule 70 mg PO DAILY No Action Zepbound 15 mg/0.5 mL pen injector 15 mg SUBCUT QWEEK Stand Alone Forms: Patient Portal Discharge page Print Language: Indonesian
--- NOTE | 2024-09-08 23:30 | HO.PHPPROGNO ---
Subjective Subjective Date of Service: 09/08/24 Reason For Visit: MDD Mental Status Exam Mental Status Exam Narrative: Alert, oriented, in no acute distress. Calm, cooperative, engaged. Less uptight.. No psychomotor agitation or neurovegetative retardation. Eye contact improving. Mood less depressed, affect variable, no lability or tearfulness. Speech normal. Thought process linear, coherent. Thought content related to stressors, fears of abandonment, transient helplessness, denies hopelessness, denies SI or HI. Intermittent thoughts of self harm, denies acting on these thoughts in interim. No paranoia or delusional content elicited. No evidence of psychosis. Insight and judgment - fair but adequate. Diagnostics Vital Signs (24Hr): BMI result Body Mass Index 25.8 Assessment & Plan Assessment & Plan (1) MDD (major depressive disorder), recurrent severe, without psychosis: Status: Acute Code(s): F33.2 - Major depressive disorder, recurrent severe without psychotic features (2) Other specified persistent mood disorders: Status: Acute Code(s): F34.89 - Other specified persistent mood disorders (3) Alcohol use disorder: Status: Acute Code(s): F10.90 - Alcohol use, unspecified, uncomplicated (4) MARY (generalized anxiety disorder): Status: Acute Code(s): F41.1 - Generalized anxiety disorder (5) Complex posttraumatic stress disorder: Status: Acute Code(s): F43.10 - Post-traumatic stress disorder, unspecified (6) Elevated homocysteine: Status: Acute Code(s): R79.89 - Other specified abnormal findings of blood chemistry Plan Extend stay at [facility] to 09/16 continue Vyvanse 50 mg qam today (better tolerated) continue Wellbutrin XL 150 mg qam continue fluoxetine 60 mg qam continue prazosin 2 mg qam (will titrate to 3 mg as tolerated) continue prazosin 2 mg daily in afternoon continue risperidone 2 mg/d (usually as 0.5-1 mg BID in AM/later afternoon + PRN dose x1 continue gabapentin 400 mg BID (AM, afternoon) ?600 continue gabapentin 1200 mg qhs continue Latuda 60 mg qd w supper continue oxcarbazepine 300 mg/d (split 150 mg BID) continue ER lithium 300 mg qd in evening continue naltrexone 25 mg (1/2 tablet) qhs Patient educated on: diagnosis and medication risk/benefits Informed Consent: understands Reason for contiued partial hosp. stay Substantial Risk for: inability to function, rapid decompensation and med/psych decompensation Certification I certify that partial hospital treatment is medically necessary due to the symptoms and problems resulting from the patient's mental illness and the failure to treat the patient at the partial hospital level of care would likely result in the patient requiring inpatient psychiatric care which could not be prevented at a less intensive level of care. Total time managing care of this patient today _45___ minutes. Discharge Plan Discharge Attending provider: Jacqueline Chawla Medications: New risperidone 0.25 mg tablet 0.25 mg PO BID Qty: 60 0RF risperidone 1 mg tablet 1 mg PO BID Qty: 30 0RF lurasidone 40 mg tablet 40 mg PO QPM Qty: 30 0RF Rx Instructions: must administer with food (at least 350 calories) gabapentin 300 mg capsule 300 mg PO TID Qty: 30 0RF lithium carbonate 300 mg tablet extended release 300 mg PO DAILY Qty: 14 0RF gabapentin 600 mg tablet 600 mg PO TID Qty: 30 0RF lisdexamfetamine 50 mg capsule 50 mg PO QAM Qty: 10 0RF Rx Instructions: Partial Fill upon patient request. naltrexone 50 mg tablet 25 mg PO BEDTIME Qty: 20 0RF levomefolate calcium 7.5 mg tablet 7.5 mg PO DAILY Qty: 30 2RF clonazepam 0.5 mg tablet 0.5 mg PO DAILY Qty: 16 0RF Continued testosterone cypionate 200 mg/mL oil See Rx Instructions .ROUTE .COMPLEX Rx Instructions: Take 0.4 ml once a week. Patient takes on . hydroxyzine HCl 10 mg tablet 10 - 20 mg PO BID PRN (Reason: Anxiety) fluoxetine 20 mg Capsule 60 mg PO DAILY Rx Instructions: Take three caps daily. finasteride 5 mg tablet 2.5 mg PO DAILY bupropion HCl 150 mg tablet extended release 24 hr 150 mg PO DAILY lorazepam 0.5 mg tablet 0.5 mg PO DAILY PRN (Reason: anxiety) Qty: 12 0RF prazosin 1 mg capsule 1 mg PO BID Qty: 60 0RF Rx Instructions: =Dose Change= (Patient takes 3 mg BID) Changed lamotrigine 25 mg tablet See Rx Instructions .ROUTE .COMPLEX Qty: 90 0RF Rx Instructions: take 2 tablets po daily x 2 weeks, then increase to 3 tablets po daily prazosin 2 mg capsule 2 mg PO BID Qty: 60 0RF Rx Instructions: =Dose Change= (Patient takes 3 mg BID) gabapentin 100 mg capsule 100 mg PO TID Qty: 30 0RF Discontinued ziprasidone HCl 20 mg capsule 20 mg PO BEDTIME oxcarbazepine 600 mg tablet 600 mg PO BID lisdexamfetamine 70 mg capsule 70 mg PO DAILY No Action Zepbound 15 mg/0.5 mL pen injector 15 mg SUBCUT QWEEK Stand Alone Forms: Patient Portal Discharge page Print Language: Faroese
--- NOTE | 2024-09-09 12:48 | P.PNPSP_ITS ---
Subjective Subjective Date of Service: 09/09/24 Reason For Visit: MDD Interim History: Met with patient who is anxious this morning about our scheduled meet-up with his therapist via phonecall. He feels he has been making progress at [facility] and has been doing well with the medications is feeling more in control, more emotionally and behaviorally regulated, with improvements in impulse control, he denies any self injures behaviors since 08/21. He reports 1 instance of transient thought of cutting with no true urge or intention. Said it was tolerable and and was easily moved onto other thoughts. He feels he is in a much better place to continue therapy and is preference is to engage in [facility] through [facility]BT and to return to work in 2 weeks. Therapist nonetheless still feel strongly that he should in gauge in the full six-month DBT program which Jonny expressed some anxiety about however he was able to hear, and agreed to consider this avenue for treatment. Following the call Jonny remained calm and was notably less tense than previous interactions (was not holding himself or rocking) and was able to maintain eye contact. He expressed his disappointment that his progress felt unrecognized or unappreciated but was also able to take an account his therapist's concerns and has the self-awareness that he still has a ways to go his recovery overall he feels good about himself at this moment that despite it being difficult conversation he has been able to maintain sense of equilibrium, mostly just noticing some residual anxiety but not noticing feeling particularly sad angry or irritable. We also appreciate the it was only a week ago when he had spoken with Rafia and felt compelled to emotionally discharge lot of Pent up frustration and despair with his primary care doctor. He says today he is feeling ?okay and overall more regulated he returned to groups for the remainder of the day. I checked in with him prior to the end of the program he maintains no suicidal thoughts no thoughts of self-harm. He expresses some sense of disappointment but otherwise states he feels emotionally stable. He overall has noticed needing less risperidone, although today did take it more regularly and felt it was beneficial. Medication Compliance: Yes Side effects from medications: No Attending Groups: Yes Review of Systems Acute medical concerns: No Mental Status Exam Mental Status Exam Narrative: Alert, oriented, in no acute distress. Calm, cooperative, engaged. Less uptight.. No psychomotor agitation or neurovegetative retardation. Eye contact improving. Mood less depressed, affect variable, no lability or tearfulness. Speech normal. Thought process linear, coherent. Thought content related to stressors, fears of abandonment, transient helplessness, denies hopelessness, denies SI or HI. Intermittent thoughts of self harm, denies acting on these thoughts in interim. No paranoia or delusional content elicited. No evidence of psychosis. Insight and judgment - fair but adequate. Diagnostics Vital Signs (24Hr): BMI result Body Mass Index 25.8 Assessment & Plan Assessment & Plan (1) MDD (major depressive disorder), recurrent severe, without psychosis: Status: Acute Code(s): F33.2 - Major depressive disorder, recurrent severe without psychotic features (2) Other specified persistent mood disorders: Status: Acute Code(s): F34.89 - Other specified persistent mood disorders (3) Alcohol use disorder: Status: Acute Code(s): F10.90 - Alcohol use, unspecified, uncomplicated (4) MARY (generalized anxiety disorder): Status: Acute Code(s): F41.1 - Generalized anxiety disorder (5) Complex posttraumatic stress disorder: Status: Acute Code(s): F43.10 - Post-traumatic stress disorder, unspecified (6) Elevated homocysteine: Status: Acute Code(s): R79.89 - Other specified abnormal findings of blood chemistry Plan Extend stay at [facility] to 09/16 continue Vyvanse 50 mg qam (better tolerated) continue Wellbutrin XL 150 mg qam continue fluoxetine 60 mg qam increase prazosin to 3 mg qam continue prazosin 2 mg daily in afternoon continue risperidone 1-2 mg/d (usually as 0.5-1 mg BID in AM/later afternoon + PRN dose x1 continue gabapentin 400 mg BID (AM, afternoon) ?600 continue gabapentin 1200 mg qhs increase Latuda to 80 mg qd w supper lower oxcarbazepine to 150 mg QAM continue ER lithium 300 mg qd in evening continue naltrexone 25 mg qhs start L-MTF 7.5 mg qd x 3 mos start methylated vitamin B complex daily vitamin Lab work reviewed with patient - mild hyperhomocysteinemia is suggestive of a deficiency in B6, 9, or 12. Levels of 9, 12 appear wnl, so perhaps may indicate a functional deficiency of one of these vitamins (perhaps pt has variant allele/MTHFR gene mutation which is not uncommon) Patient educated on: diagnosis and medication risk/benefits Informed Consent: understands Reason for contiued partial hosp. stay Substantial Risk for: rapid decompensation and med/psych decompensation Certification I certify that partial hospital treatment is medically necessary due to the symptoms and problems resulting from the patient's mental illness and the failure to treat the patient at the partial hospital level of care would likely result in the patient requiring inpatient psychiatric care which could not be prevented at a less intensive level of care. Total time managing care of this patient today _45___ minutes. Discharge Plan Discharge Attending provider: Jacqueline Chawla Medications: New risperidone 0.25 mg tablet 0.25 mg PO BID Qty: 60 0RF risperidone 1 mg tablet 1 mg PO BID Qty: 30 0RF lurasidone 40 mg tablet 40 mg PO QPM Qty: 30 0RF Rx Instructions: must administer with food (at least 350 calories) gabapentin 300 mg capsule 300 mg PO TID Qty: 30 0RF lithium carbonate 300 mg tablet extended release 300 mg PO DAILY Qty: 14 0RF gabapentin 600 mg tablet 600 mg PO TID Qty: 30 0RF lisdexamfetamine 50 mg capsule 50 mg PO QAM Qty: 10 0RF Rx Instructions: Partial Fill upon patient request. naltrexone 50 mg tablet 25 mg PO BEDTIME Qty: 20 0RF levomefolate calcium 7.5 mg tablet 7.5 mg PO DAILY Qty: 30 2RF clonazepam 0.5 mg tablet 0.5 mg PO DAILY Qty: 16 0RF Continued testosterone cypionate 200 mg/mL oil See Rx Instructions .ROUTE .COMPLEX Rx Instructions: Take 0.4 ml once a week. Patient takes on . hydroxyzine HCl 10 mg tablet 10 - 20 mg PO BID PRN (Reason: Anxiety) fluoxetine 20 mg Capsule 60 mg PO DAILY Rx Instructions: Take three caps daily. finasteride 5 mg tablet 2.5 mg PO DAILY bupropion HCl 150 mg tablet extended release 24 hr 150 mg PO DAILY lorazepam 0.5 mg tablet 0.5 mg PO DAILY PRN (Reason: anxiety) Qty: 12 0RF prazosin 1 mg capsule 1 mg PO BID Qty: 60 0RF Rx Instructions: =Dose Change= (Patient takes 3 mg BID) Changed lamotrigine 25 mg tablet See Rx Instructions .ROUTE .COMPLEX Qty: 90 0RF Rx Instructions: take 2 tablets po daily x 2 weeks, then increase to 3 tablets po daily prazosin 2 mg capsule 2 mg PO BID Qty: 60 0RF Rx Instructions: =Dose Change= (Patient takes 3 mg BID) gabapentin 100 mg capsule 100 mg PO TID Qty: 30 0RF Discontinued ziprasidone HCl 20 mg capsule 20 mg PO BEDTIME oxcarbazepine 600 mg tablet 600 mg PO BID lisdexamfetamine 70 mg capsule 70 mg PO DAILY No Action Zepbound 15 mg/0.5 mL pen injector 15 mg SUBCUT QWEEK Stand Alone Forms: Patient Portal Discharge page Print Language: Panamanian
--- NOTE | 2024-09-10 18:02 | PM.EVENT ---
Event Note Date of Service: 09/10/24 Event Note: Checking in with patient this evening as per safety plan, and to check on recent medication changes. Patient reports having a very good day . Family went to daughter's soccer game and then they went and spent time with another family they are close with. He was able to have an in-depth discussion with a friend regarding the situation with DBT and his therapist without getting flooded . No thoughts of self harm today, overall feeling more in control, nothing short of a miracle . Sleep intact. He is tolerating increase in dose of Latuda to 80 mg/d, Trileptal now down to 150 mg/d. Prazosin at 3 mg in AM and 2 mg in lateafternoon/evening. Denies any adverse effects with medications. Will continue plan. cont Vyvanse 50 mg qam (better tolerated) cont Wellbutrin XL 150 mg qam (?redundant) cont fluoxetine 60 mg qam (vs 40 mg) cont prazosin 5 mg/d (split 3 mg AM/ 2 mg PM) cont risperidone 0.5 mg QID as PRN (pt has been taking between 1-2 mg/d in total) cont Latuda 80 mg QD w supper cont oxcarbazepine 150 mg qAM (will plan to taper off next week) continue gabapentin 400 mg BID (AM/afternoon) will consider 600 for anxiety continue gabapentin 1200 mg qhs continue ER lithium 300 mg qd in evening continue naltrexone 25 mg qhs start L-MTF 7.5 mg qd x 3 mos (too expensive through insurance, pt ordered online) start methylated vitamin B complex daily vitamin (pt ordered online) Time Spent With Patient Time: Total time managing care of this patient today __15__ minutes.
--- NOTE | 2024-09-15 12:07 | P.PNPSP_ITS ---
Subjective Subjective Date of Service: 09/15/24 Reason For Visit: MDD Medication Compliance: Yes Side effects from medications: Yes (as noted) Attending Groups: Yes Review of Systems Acute medical concerns: No Mental Status Exam Mental Status Exam Narrative: Alert, oriented, in no acute distress. Mood good , affect appropriate. Eye contact maintained. Speech normal. Thought process ruminative. Thought content related to stressors, fears of abandonment, helplessness, denies hopelessness, denies SI or HI. Thoughts of self harm without intention or plan. Denies acting on these thoughts in interim. No paranoia or delusional content elicited. No evidence of psychosis. Insight and judgment - fair but adequate. Diagnostics Vital Signs (24Hr): BMI result Body Mass Index 25.8 Assessment & Plan Assessment & Plan (1) MDD (major depressive disorder), recurrent severe, without psychosis: Status: Acute Code(s): F33.2 - Major depressive disorder, recurrent severe without psychotic features (2) Other specified persistent mood disorders: Status: Acute Code(s): F34.89 - Other specified persistent mood disorders (3) Complex posttraumatic stress disorder: Status: Acute Code(s): F43.10 - Post-traumatic stress disorder, unspecified (4) MARY (generalized anxiety disorder): Status: Acute Code(s): F41.1 - Generalized anxiety disorder (5) Borderline personality disorder: Status: Acute Code(s): F60.3 - Borderline personality disorder (6) Elevated homocysteine: Status: Acute Code(s): R79.89 - Other specified abnormal findings of blood chemistry Plan continue PHP cont Vyvanse 50 mg qam (better tolerated vs 70 mg) cont Wellbutrin XL 150 mg qam (?redundant) cont fluoxetine 20 mg qam cont prazosin 5 mg/d (split 3 mg AM/ 2 mg PM) cont risperidone 0.5 mg QID as PRN (pt has been taking between 1-2 mg/d in total) cont Latuda 80 mg QD w supper cont oxcarbazepine 150 mg qAM (will plan to taper off next week) continue gabapentin 400 mg BID (AM/afternoon) will consider 600 for anxiety continue gabapentin 1200 mg qhs continue ER lithium 300 mg qd in evening continue naltrexone 25 mg qhs start L-MTF 7.5 mg qd x 3 mos (too expensive through insurance, pt ordered online) start methylated vitamin B complex daily vitamin (pt ordered online) Patient educated on: diagnosis, medication risk/benefits and medical condition Informed Consent: understands Certification I certify that partial hospital treatment is medically necessary due to the symptoms and problems resulting from the patient's mental illness and the failure to treat the patient at the partial hospital level of care would likely result in the patient requiring inpatient psychiatric care which could not be prevented at a less intensive level of care. Total time managing care of this patient today ____ minutes. Discharge Plan Discharge Attending provider: Jacqueline Chawla Medications: New risperidone 0.25 mg tablet 0.25 mg PO BID Qty: 60 0RF risperidone 1 mg tablet 1 mg PO BID Qty: 30 0RF gabapentin 300 mg capsule 300 mg PO TID Qty: 30 0RF lisdexamfetamine 50 mg capsule 50 mg PO QAM Qty: 10 0RF Rx Instructions: Partial Fill upon patient request. naltrexone 50 mg tablet 25 mg PO BEDTIME Qty: 20 0RF levomefolate calcium 7.5 mg tablet 7.5 mg PO DAILY Qty: 30 2RF clonazepam 0.5 mg tablet 0.5 mg PO DAILY Qty: 16 0RF lurasidone 80 mg tablet 80 mg PO QPM Qty: 30 0RF Rx Instructions: must administer with food (at least 350 calories) dextroamphetamine-amphetamine 10 mg tablet 10 mg PO DAILY PRN (Reason: focus/attention) Qty: 14 0RF Rx Instructions: Partial Fill upon patient request. fluoxetine 20 mg capsule 20 mg PO QAM Qty: 14 0RF tacrolimus 0.03 % ointment 1 appl topical BID Qty: 30 0RF Rx Instructions: for severe atopic dermatitis Continued testosterone cypionate 200 mg/mL oil See Rx Instructions .ROUTE .COMPLEX Rx Instructions: Take 0.4 ml once a week. Patient takes on Thursday'. hydroxyzine HCl 10 mg tablet 10 - 20 mg PO BID PRN (Reason: Anxiety) finasteride 5 mg tablet 2.5 mg PO DAILY bupropion HCl 150 mg tablet extended release 24 hr 150 mg PO DAILY lorazepam 0.5 mg tablet 0.5 mg PO DAILY PRN (Reason: anxiety) Qty: 12 0RF prazosin 1 mg capsule 1 mg PO BID Qty: 60 0RF Rx Instructions: =Dose Change= (Patient takes 3 mg BID) lithium carbonate 300 mg tablet extended release 300 mg PO DAILY Qty: 30 0RF Changed lamotrigine 25 mg tablet See Rx Instructions .ROUTE .COMPLEX Qty: 90 0RF Rx Instructions: take 2 tablets po daily x 2 weeks, then increase to 3 tablets po daily gabapentin 100 mg capsule 100 mg PO TID Qty: 30 0RF prazosin 2 mg capsule 2 mg PO TID Qty: 90 0RF Rx Instructions: =Dose Change= Patient takes 3 mg (2 mg + 1 mg caps) QAM and 4 mg (2 mg x 2 caps) QHS gabapentin 600 mg tablet 1,200 mg PO BEDTIME Qty: 60 0RF Discontinued ziprasidone HCl 20 mg capsule 20 mg PO BEDTIME oxcarbazepine 600 mg tablet 600 mg PO BID fluoxetine 20 mg Capsule 60 mg PO DAILY Rx Instructions: Take three caps daily. lisdexamfetamine 70 mg capsule 70 mg PO DAILY No Action Zepbound 15 mg/0.5 mL pen injector 15 mg SUBCUT QWEEK Stand Alone Forms: Patient Portal Discharge page Print Language: Egyptian
--- NOTE | 2024-09-15 23:59 | HO.PHPPROGNO ---
Subjective Subjective Date of Service: 09/13/24 Reason For Visit: MDD Interim History: Jonny discusses returning to work today having some mixed feelings an understandable anxiety especially after his absence so late in the semester. 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 I have been trying to get a hold of Jose Spencer to clarify what the the boarding process looks like as Jonny is concerned about not having therapy in place once he leaves partial. Today he was more notably anxious and fixated on his therapist especially after sharing that he has been anticipating a meeting with her and Jose Spencer which had been floated as an idea during our last meeting last week. 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 And I suggested that Rafia may have only been floating this idea when we are in a situation where Jonny was supposed to be discharged last week and would be leaving a gap (this week) with coordinating his care. However this proved to be unattainable consideration at least in terms of gapping therapy after receiving a clear notice from therapist floating labor gang supervisor that they would not be able to provide any further therapeutic support for patient. When exploring patient's hopes expectations for this meeting, he shares the hope that his therapist would share her thoughts about what therapy and their time together has meant to her (especially since Jonny had written therapist e-mail last week expressing their gratitude and seems he was hoping for some acknowledgement and reciprocity). I ponder whether this is a realistic expectation of his therapist especially given the nature of this proposed meeting with Jose Spencer, which I would expect would be much more of a procedural discussion ?nuts and bolts?of the boarding process and perhaps would not the appropriate time to have such an intimate discussion. I also propose to Jonny we continue to consider whether this would be a in the best interest especially since it seemed apparent from our meeting with Rafia last week that there was a sense of closure of their time together and transitioning into DBT where she no longer could be his therapist. At the time Jonny had also acknowledged this) but now seems to be hedging on, stating that basically his therapist did not explicitly state this would be there final time seeing each other. He denies any thoughts or plan to self harm, but recognaized this is a situation that would have, not long ago, been triggering such a response. I also appreciate that patient anxiety already heightened with proscpet of returning to work today and this employment situation as well will be coming to an end once the academic year is done. I later in the day spoke with Jose Spencer who tells me presuming that Jonny is a good candidate for the full program there would still be a process of getting him boarded in the program. Jose shared that upon meeting him on Thursday he would be initially taking over responsibility for Jonny during this time however Jose stated he would not be meeting with due to do therapy so much as he would be coordinating his care assigning him to a therapist which could happen as early as next week but could be a week or 2 before Jonny is actually connected with and actively engaged in individual and group therapy. Medication Compliance: Yes Side effects from medications: Yes (constipation) Attending Groups: Yes Review of Systems Acute medical concerns: No Mental Status Exam Mental Status Exam Narrative: Alert, oriented, in no acute distress. Calm, cooperative, engaged. Less uptight.. No psychomotor agitation or neurovegetative retardation. Eye contact improving. Mood less depressed, affect variable, no lability or tearfulness. Speech normal. Thought process linear, coherent. Thought content related to stressors, fears of abandonment, transient helplessness, denies hopelessness, denies SI or HI. Intermittent thoughts of self harm, denies acting on these thoughts in interim. No paranoia or delusional content elicited. No evidence of psychosis. Insight and judgment - fair but adequate. Diagnostics Vital Signs (24Hr): BMI result Body Mass Index 25.8 Assessment & Plan Assessment & Plan (1) MDD (major depressive disorder), recurrent severe, without psychosis: Status: Acute Code(s): F33.2 - Major depressive disorder, recurrent severe without psychotic features (2) Other specified persistent mood disorders: Status: Acute Code(s): F34.89 - Other specified persistent mood disorders (3) Alcohol use disorder: Status: Acute Code(s): F10.90 - Alcohol use, unspecified, uncomplicated (4) MARY (generalized anxiety disorder): Status: Acute Code(s): F41.1 - Generalized anxiety disorder (5) Complex posttraumatic stress disorder: Status: Acute Code(s): F43.10 - Post-traumatic stress disorder, unspecified (6) Elevated homocysteine: Status: Acute Code(s): R79.89 - Other specified abnormal findings of blood chemistry Plan Cont PHP Will advocate for transition to IOP, which patient would agree to spoke Jose Spencer to discuss transfering care, intake appointment / start prn bowel regime for constipation increase fluid intake and fiber supplementation constipation likely due to polypharmacy (which I expect to be a temporary issue, as I am hoping to be able to cut down on daily medication dosing (risp/gbt/praz) once patient has transitioned and has settled into DBT) in the meantime Comstock and SSRI also likely not helping (however Comstock is felt to be contributing to overall stabilization warren with SI/SIB and for now will remain. will continue to taper SSRI decrease fluoxetine to 40 mg qam cont Vyvanse 50 mg qam (better tolerated) cont Wellbutrin XL 150 mg qam (?redundant) cont prazosin 5 mg/d (split 3 mg AM/ 2 mg PM) cont risperidone 0.5 mg QID as PRN (pt has been taking between 1-2 mg/d in total) cont Latuda 80 mg QD w supper (alternatively consider whether risperidal should stay on and perhaps Latuda could be lowered, d/c) cont oxcarbazepine 150 mg qAM (will plan to taper off next week) cont gabapentin 400 mg BID (AM/afternoon) will consider 600 for anxiety cont gabapentin 1200 mg qhs (also will consider reducing given patient's sleep intact) cont ER lithium 300 mg qd in evening cont naltrexone 25 mg qhs cont L-MTF 7.5 mg qd x 3 mos (too expensive through insurance, pt ordered online) cont methylated vitamin B complex daily vitamin (pt ordered online) Patient educated on: diagnosis and medication risk/benefits Informed Consent: understands Reason for contiued partial hosp. stay Substantial Risk for: harm to self and med/psych decompensation Certification I certify that partial hospital treatment is medically necessary due to the symptoms and problems resulting from the patient's mental illness and the failure to treat the patient at the partial hospital level of care would likely result in the patient requiring inpatient psychiatric care which could not be prevented at a less intensive level of care. Total time managing care of this patient today __90__ minutes. Discharge Plan Discharge Attending provider: Jacqueline Chawla Medications: New risperidone 0.25 mg tablet 0.25 mg PO BID Qty: 60 0RF risperidone 1 mg tablet 1 mg PO BID Qty: 30 0RF gabapentin 300 mg capsule 300 mg PO TID Qty: 30 0RF lisdexamfetamine 50 mg capsule 50 mg PO QAM Qty: 10 0RF Rx Instructions: Partial Fill upon patient request. naltrexone 50 mg tablet 25 mg PO BEDTIME Qty: 20 0RF levomefolate calcium 7.5 mg tablet 7.5 mg PO DAILY Qty: 30 2RF clonazepam 0.5 mg tablet 0.5 mg PO DAILY Qty: 16 0RF lurasidone 80 mg tablet 80 mg PO QPM Qty: 30 0RF Rx Instructions: must administer with food (at least 350 calories) fluoxetine 40 mg capsule 40 mg PO QAM Qty: 30 0RF Rx Instructions: Dose Decrease Continued testosterone cypionate 200 mg/mL oil See Rx Instructions .ROUTE .COMPLEX Rx Instructions: Take 0.4 ml once a week. Patient takes on . hydroxyzine HCl 10 mg tablet 10 - 20 mg PO BID PRN (Reason: Anxiety) finasteride 5 mg tablet 2.5 mg PO DAILY bupropion HCl 150 mg tablet extended release 24 hr 150 mg PO DAILY lorazepam 0.5 mg tablet 0.5 mg PO DAILY PRN (Reason: anxiety) Qty: 12 0RF prazosin 1 mg capsule 1 mg PO BID Qty: 60 0RF Rx Instructions: =Dose Change= (Patient takes 3 mg BID) lithium carbonate 300 mg tablet extended release 300 mg PO DAILY Qty: 30 0RF Changed lamotrigine 25 mg tablet See Rx Instructions .ROUTE .COMPLEX Qty: 90 0RF Rx Instructions: take 2 tablets po daily x 2 weeks, then increase to 3 tablets po daily gabapentin 100 mg capsule 100 mg PO TID Qty: 30 0RF prazosin 2 mg capsule 2 mg PO TID Qty: 90 0RF Rx Instructions: =Dose Change= Patient takes 3 mg (2 mg + 1 mg caps) QAM and 4 mg (2 mg x 2 caps) QHS gabapentin 600 mg tablet 1,200 mg PO BEDTIME Qty: 60 0RF fluoxetine 20 mg Capsule 40 mg PO DAILY Qty: 60 0RF Rx Instructions: Take three caps daily. Discontinued ziprasidone HCl 20 mg capsule 20 mg PO BEDTIME oxcarbazepine 600 mg tablet 600 mg PO BID lisdexamfetamine 70 mg capsule 70 mg PO DAILY No Action Zepbound 15 mg/0.5 mL pen injector 15 mg SUBCUT QWEEK Stand Alone Forms: Patient Portal Discharge page Print Language: Polish
--- NOTE | 2024-09-19 18:50 | HO.PHPPROGNO ---
Subjective Subjective Date of Service: 09/19/24 Reason For Visit: MDD Interim History: Met with patient this afternoon who is struggling with high level of anxiety in anticipation of returning to work later this afternoon. He has been feeling he is in over his head, especially overwhelmed by the prospect of being suddenly thrust into too much work and responsibilities and does not feel prepared. I feel like I am too far behind discussing exams and papers which have not been graded for a number of weeks now. He spent a considerable amount of time ruminating about his therapist, experiencing more rejection sensitivity than he had been for the past 2 weeks. Medication Compliance: Yes Side effects from medications: Yes (see below) Attending Groups: Yes Review of Systems Acute medical concerns: No Medical Review of Systems: changed Review of Systems: constipation Mental Status Exam Mental Status Exam Narrative: Alert, oriented, in no acute distress. Anxious, overwhelmed. Eye contact maintained. Mood labile, anxious affect anxious, reactive. Speech normal. Thought process ruminative. Thought content related to stressors, fears of abandonment, helplessness, denies hopelessness, denies SI or HI. Thoughts of self harm without intention or plan. Denies acting on these thoughts in interim. No paranoia or delusional content elicited. No evidence of psychosis. Insight and judgment - fair but adequate. Diagnostics Vital Signs (24Hr): BMI result Body Mass Index 25.8 Assessment & Plan Assessment & Plan (1) MDD (major depressive disorder), recurrent severe, without psychosis: Status: Acute Code(s): F33.2 - Major depressive disorder, recurrent severe without psychotic features (2) Other specified persistent mood disorders: Status: Acute Code(s): F34.89 - Other specified persistent mood disorders (3) Alcohol use disorder: Status: Acute Code(s): F10.90 - Alcohol use, unspecified, uncomplicated (4) MARY (generalized anxiety disorder): Status: Acute Code(s): F41.1 - Generalized anxiety disorder (5) Complex posttraumatic stress disorder: Status: Acute Code(s): F43.10 - Post-traumatic stress disorder, unspecified (6) Elevated homocysteine: Status: Acute Code(s): R79.89 - Other specified abnormal findings of blood chemistry Plan Cont PHP, anticipate discharge Thursday Transition to IOP next week continue Prozac 40 mg qam (plan to taper off - 2D6 interactions w risperidone, other rx interactions WB, gbt, [place] - increasing inhibition and may be contributing to constipation, urinary retention) cont Wellbutrin XL 150 mg qam (?redundant) cont Vyvanse 50 mg qam (better tolerated) cont prazosin 7 mg/d (split 3 mg AM/ 2 mg noon/ 2 mg 4pm) to manage somatic anxiety/visceral trauma response cont risperidone 0.5 mg TID and 0.5 mg as PRN (pt has been taking 1.5 mg/d in total, will discontinue PRN dose) cont gabapentin 400 mg BID (AM/afternoon) cont gabapentin 1200 mg qhs cont Latuda 80 mg QD w supper (alternatively consider whether risperidal should stay on and perhaps Latuda could be lowered or d/c) cont lamotrigine cont lithium ER 300 mg qd in evening cont naltrexone 25 mg qhs cont L-MTF 7.5 mg qd x 3 mos (too expensive through insurance, pt ordered online) cont methylated vitamin B complex daily vitamin (pt ordered online) encouraged to increase po fluid intake and fiber supplmt (will hold off on bowel regime for constipation given improvement in sx) which may be related to decrease in fluoxetine constipation likely due to polypharmacy (which I expect to be a temporary issue, as I am hoping to be able to cut down on daily medication dosing (risp/gbt/praz) once patient has transitioned and has settled into DBT) in the meantime [place] and SSRI also likely not helping (however [place] is felt to be contributing to overall stabilization warren with SI/SIB and for now will remain. will continue to Patient educated on: diagnosis, medication risk/benefits and medical condition Informed Consent: understands Reason for contiued partial hosp. stay Substantial Risk for: harm to self, inability to function, rapid decompensation and med/psych decompensation Certification I certify that partial hospital treatment is medically necessary due to the symptoms and problems resulting from the patient's mental illness and the failure to treat the patient at the partial hospital level of care would likely result in the patient requiring inpatient psychiatric care which could not be prevented at a less intensive level of care. Total time managing care of this patient today __40__ minutes. Discharge Plan Discharge Attending provider: Jacqueline Chawla Medications: New risperidone 0.25 mg tablet 0.25 mg PO BID Qty: 60 0RF risperidone 1 mg tablet 1 mg PO BID Qty: 30 0RF gabapentin 300 mg capsule 300 mg PO TID Qty: 30 0RF lisdexamfetamine 50 mg capsule 50 mg PO QAM Qty: 10 0RF Rx Instructions: Partial Fill upon patient request. naltrexone 50 mg tablet 25 mg PO BEDTIME Qty: 20 0RF levomefolate calcium 7.5 mg tablet 7.5 mg PO DAILY Qty: 30 2RF clonazepam 0.5 mg tablet 0.5 mg PO DAILY Qty: 16 0RF lurasidone 80 mg tablet 80 mg PO QPM Qty: 30 0RF Rx Instructions: must administer with food (at least 350 calories) fluoxetine 40 mg capsule 40 mg PO QAM Qty: 30 0RF Rx Instructions: Dose Decrease dextroamphetamine-amphetamine 10 mg tablet 10 mg PO DAILY PRN (Reason: focus/attention) Qty: 14 0RF Rx Instructions: Partial Fill upon patient request. Continued testosterone cypionate 200 mg/mL oil See Rx Instructions .ROUTE .COMPLEX Rx Instructions: Take 0.4 ml once a week. Patient takes on . hydroxyzine HCl 10 mg tablet 10 - 20 mg PO BID PRN (Reason: Anxiety) finasteride 5 mg tablet 2.5 mg PO DAILY bupropion HCl 150 mg tablet extended release 24 hr 150 mg PO DAILY lorazepam 0.5 mg tablet 0.5 mg PO DAILY PRN (Reason: anxiety) Qty: 12 0RF prazosin 1 mg capsule 1 mg PO BID Qty: 60 0RF Rx Instructions: =Dose Change= (Patient takes 3 mg BID) lithium carbonate 300 mg tablet extended release 300 mg PO DAILY Qty: 30 0RF Changed lamotrigine 25 mg tablet See Rx Instructions .ROUTE .COMPLEX Qty: 90 0RF Rx Instructions: take 2 tablets po daily x 2 weeks, then increase to 3 tablets po daily gabapentin 100 mg capsule 100 mg PO TID Qty: 30 0RF prazosin 2 mg capsule 2 mg PO TID Qty: 90 0RF Rx Instructions: =Dose Change= Patient takes 3 mg (2 mg + 1 mg caps) QAM and 4 mg (2 mg x 2 caps) QHS gabapentin 600 mg tablet 1,200 mg PO BEDTIME Qty: 60 0RF fluoxetine 20 mg Capsule 40 mg PO DAILY Qty: 60 0RF Rx Instructions: Take three caps daily. Discontinued ziprasidone HCl 20 mg capsule 20 mg PO BEDTIME oxcarbazepine 600 mg tablet 600 mg PO BID lisdexamfetamine 70 mg capsule 70 mg PO DAILY No Action Zepbound 15 mg/0.5 mL pen injector 15 mg SUBCUT QWEEK Stand Alone Forms: Patient Portal Discharge page Print Language: Mongolian
--- NOTE | 2024-09-21 21:52 | P.PNPSP_ITS ---
Subjective Subjective Date of Service: 09/21/24 Reason For Visit: MDD Interim History: Met with patient this afternoon who is struggling with high level of anxiety the last 2 days since returning to work on Thursday. He is feeling over his head especially overwhelmed by being suddenly thrust into too much work and responsibilities. He was notably more emotionally and behaviorally dysregulated yesterday (and the day before) and we had briefly discussed whether it would be practical to extend his FMLA as I am concerned the stress will undermine his progress and overall has been to stabilizing since returning, and agreed to continue discussion today. 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 He had an appointment with his primary care doctor yesterday which proved to be difficult and shared feeling emotionally triggered by even with what sounded like gentle limit setting by his PCP. He reports feeling emotionally shut down part way through their conversation and began to cry, and continued to be quite ruminative around perceived abandonment by his therapist a [facility] PCP. However unlike his previous appointment with PCP over 2 weeks ago (when patient had emotional outburst) he did appear to be relatively more regulated during this appointment. He admits to having had emerging thoughts of self-harm following the appointment, but did not experience an overwhelming urge to act on these thoughts. Impulsivity has been considerably improved and he recognizes that such an interaction only a couple of weeks ago may have led to SIB. He denies any recent suicidal ideation. He spent the majority of our discussion appropriately processing this experience but is still having a lot of trouble finding a path forward with being able to return to work and manage all his responsibilities as he simultaneously addressing his MH issues. Struggling with all this anxiety and emotion but is hoping the extra time off will help. He denies any further SIB thoughts today and says he has been feeling calmer since deciding not to return to work. Asked patient to sign POPEYE. Reached out to speak with HR at [facility] to notify them of intent to file extension on FMLA through 09/30. multimedia manager at [facility] will fax over to [facility] the original [facility] paperwork to be completed Medication Compliance: Yes Side effects from medications: No Attending Groups: Yes Review of Systems Acute medical concerns: No Medical Review of Systems: changed Review of Systems: constipation (improving), urinary retention, exacerbation in allergies (both likely medication related) Mental Status Exam Mental Status Exam Narrative: Alert, oriented, in no acute distress. Calm, cooperative, engaged. No psychomotor agitation or neurovegetative retardation. Eye contact maintained. Mood sad, affect anxious, less labile. Speech normal. Thought process linear, coherent, ruminative. Thought content related to stressors, fears of abandonment, helplessness, denies hopelessness, denies SI or HI. Intermittent thoughts of self harm, denies acting on these thoughts in interim. No paranoia or delusional content elicited. No evidence of psychosis. Insight and judgment - fair but adequate. Diagnostics Vital Signs (24Hr): BMI result Body Mass Index 25.8 Assessment & Plan Assessment & Plan (1) MDD (major depressive disorder), recurrent severe, without psychosis: Status: Acute Code(s): F33.2 - Major depressive disorder, recurrent severe without psychotic features (2) Other specified persistent mood disorders: Status: Acute Code(s): F34.89 - Other specified persistent mood disorders (3) Alcohol use disorder: Status: Acute Code(s): F10.90 - Alcohol use, unspecified, uncomplicated (4) MARY (generalized anxiety disorder): Status: Acute Code(s): F41.1 - Generalized anxiety disorder (5) Complex posttraumatic stress disorder: Status: Acute Code(s): F43.10 - Post-traumatic stress disorder, unspecified (6) Elevated homocysteine: Status: Acute Code(s): R79.89 - Other specified abnormal findings of blood chemistry Plan Cont PHP, anticipate discharge Thursday Transition to IOP next week decrease Prozac to 20 mg qam (plan to taper off - 2D6 interactions w risperidone, other rx interactions WB, gbt, [place] - increasing inhibition and may be contributing to constipation, urinary retention) cont Wellbutrin XL 150 mg qam (?redundant) cont Vyvanse 50 mg qam (better tolerated) cont prazosin 7 mg/d (split 3 mg AM/ 2 mg noon/ 2 mg 4pm) to manage somatic anxiety/visceral trauma response cont risperidone 0.5 mg TID (patient continues to rely on risperidone to manage acute dysregulaton, intrusive SIB) cont gabapentin 400 mg BID (AM/afternoon) cont gabapentin 1200 mg qhs (plan to lower to 900 mg tomorrow) cont Latuda 80 mg QD w supper (we are consdering whether risperidone will continue to be warranted, perhaps will discont Latuda and continue to titrate for management of depression) cont lamotrigine cont ER lithium 300 mg qd in evening cont naltrexone 25 mg qhs cont L-MTF 7.5 mg qd x 3 mos (too expensive through insurance, pt ordered online) cont methylated vitamin B complex daily vitamin (pt ordered online) encouraged to increase po fluid intake and fiber supplmt (will hold off on bowel regime for constipation given improvement in sx) which may be related to decrease in fluoxetine constipation and urinary retention likely due to other concerns regarding polypharmacy - anticipating cut down on daily medication dosing (risp/gbt/praz) once patient has transitioned and has settled into DBT) [place] and fluoxetine also likely not helping (however [place] is felt to be contributing to overall stabilization warren with SI/SIB and for now will remain. will continue to Patient educated on: diagnosis, medication risk/benefits and medical condition Informed Consent: understands Reason for contiued partial hosp. stay Substantial Risk for: harm to self, inability to function, rapid decompensation and med/psych decompensation Certification I certify that partial hospital treatment is medically necessary due to the symptoms and problems resulting from the patient's mental illness and the failure to treat the patient at the partial hospital level of care would likely result in the patient requiring inpatient psychiatric care which could not be prevented at a less intensive level of care. Total time managing care of this patient today __60__ minutes. Discharge Plan Discharge Attending provider: Jacqueline Chawla Medications: New risperidone 0.25 mg tablet 0.25 mg PO BID Qty: 60 0RF risperidone 1 mg tablet 1 mg PO BID Qty: 30 0RF gabapentin 300 mg capsule 300 mg PO TID Qty: 30 0RF lisdexamfetamine 50 mg capsule 50 mg PO QAM Qty: 10 0RF Rx Instructions: Partial Fill upon patient request. naltrexone 50 mg tablet 25 mg PO BEDTIME Qty: 20 0RF levomefolate calcium 7.5 mg tablet 7.5 mg PO DAILY Qty: 30 2RF clonazepam 0.5 mg tablet 0.5 mg PO DAILY Qty: 16 0RF lurasidone 80 mg tablet 80 mg PO QPM Qty: 30 0RF Rx Instructions: must administer with food (at least 350 calories) fluoxetine 40 mg capsule 40 mg PO QAM Qty: 30 0RF Rx Instructions: Dose Decrease dextroamphetamine-amphetamine 10 mg tablet 10 mg PO DAILY PRN (Reason: focus/attention) Qty: 14 0RF Rx Instructions: Partial Fill upon patient request. Continued testosterone cypionate 200 mg/mL oil See Rx Instructions .ROUTE .COMPLEX Rx Instructions: Take 0.4 ml once a week. Patient takes on . hydroxyzine HCl 10 mg tablet 10 - 20 mg PO BID PRN (Reason: Anxiety) finasteride 5 mg tablet 2.5 mg PO DAILY bupropion HCl 150 mg tablet extended release 24 hr 150 mg PO DAILY lorazepam 0.5 mg tablet 0.5 mg PO DAILY PRN (Reason: anxiety) Qty: 12 0RF prazosin 1 mg capsule 1 mg PO BID Qty: 60 0RF Rx Instructions: =Dose Change= (Patient takes 3 mg BID) lithium carbonate 300 mg tablet extended release 300 mg PO DAILY Qty: 30 0RF Changed lamotrigine 25 mg tablet See Rx Instructions .ROUTE .COMPLEX Qty: 90 0RF Rx Instructions: take 2 tablets po daily x 2 weeks, then increase to 3 tablets po daily gabapentin 100 mg capsule 100 mg PO TID Qty: 30 0RF prazosin 2 mg capsule 2 mg PO TID Qty: 90 0RF Rx Instructions: =Dose Change= Patient takes 3 mg (2 mg + 1 mg caps) QAM and 4 mg (2 mg x 2 caps) QHS gabapentin 600 mg tablet 1,200 mg PO BEDTIME Qty: 60 0RF fluoxetine 20 mg Capsule 40 mg PO DAILY Qty: 60 0RF Rx Instructions: Take three caps daily. Discontinued ziprasidone HCl 20 mg capsule 20 mg PO BEDTIME oxcarbazepine 600 mg tablet 600 mg PO BID lisdexamfetamine 70 mg capsule 70 mg PO DAILY No Action Zepbound 15 mg/0.5 mL pen injector 15 mg SUBCUT QWEEK Stand Alone Forms: Patient Portal Discharge page Print Language: Croatian
--- NOTE | 2024-09-23 12:50 | HO.PHPPROGNO ---
Subjective Subjective Date of Service: 09/23/24 Reason For Visit: MDD Interim History: Met with patient for follow-up. He anticipates discharge today at the end of the program will be transitioning to IOP next week for continuation of treatment and ongoing medication management. ?Today has a been a pretty good day. I am noticing in last 2 days I just been feeling much better. It feels like it is been a long time he is future oriented and is focused on treatment in self-care. He felt it was the right decision to extend his FMLA. Reports mood is ?good? today, has not been triggered in the past day or 2. He feels in some way he is trying to work through the grief trying to accept things that he can not change so that he can move forward. He is notably less anxious today, and markedly less obsessive/fixated on situation with his outpatient providers. He relays trying to work towards acceptance that his time at this therapist for now has ended but is confident he can continue under the care of his PCP. For now seems to think it [place] to let things settle is focused toward transitioning into DBT. He has his appointment today with Jose Spencer for DBT intake and is advocating for the full 6 month program, but says he is also open to the [facility] group as he feels he has made some progress and is not sure if he is requiring that higher level of care (full program) which he feel could be ?more than I need? and feels somewhat pressured by his treaters to do the full program. He reports some early signs of improvement in regards to constipation as well as urinary retention. Time will tell if the eventual discontinuation of fluoxetine resolves or just merely improves the symptoms. He is also requiring Benadryl daily in the evening for allergies. We tried swuy-ota-msdsiom Evonne and Zyrtec neither of which were helpful, Claritin has been a little more effective which he has been taking it first thing in the morning. Benadryl can certainly contribute to his side effects including constipation however he reportedly clears up after a week or 2 in the spring due to the pollen and does not plan to be on Benadryl long-term. As previously discussed we will order tacrolimus cream to treat atopic dermatitis (in his ear) as well as what sounds like inverse psoriasis by his PCP which apparently did not respond to hydrocortisone treatment. He denies any thoughts of self-harm at this time. He has a very busy weekend planned with family and friends including bringing his kids to soccer games and going to the [employer] on [place]. Medication Compliance: Yes Side effects from medications: Yes (as noted above) Attending Groups: Yes Review of Systems Acute medical concerns: No Mental Status Exam Mental Status Exam Narrative: Alert, oriented, in no acute distress. Mood good , affect appropriate. Eye contact maintained. Speech normal. Thought process ruminative. Thought content related to stressors, fears of abandonment, helplessness, denies hopelessness, denies SI or HI. Thoughts of self harm without intention or plan. Denies acting on these thoughts in interim. No paranoia or delusional content elicited. No evidence of psychosis. Insight and judgment - fair but adequate. Diagnostics Vital Signs (24Hr): BMI result Body Mass Index 25.8 Assessment & Plan Assessment & Plan (1) MDD (major depressive disorder), recurrent severe, without psychosis: Status: Acute Code(s): F33.2 - Major depressive disorder, recurrent severe without psychotic features (2) Other specified persistent mood disorders: Status: Acute Code(s): F34.89 - Other specified persistent mood disorders (3) Alcohol use disorder: Status: Acute Code(s): F10.90 - Alcohol use, unspecified, uncomplicated (4) MARY (generalized anxiety disorder): Status: Acute Code(s): F41.1 - Generalized anxiety disorder (5) Complex posttraumatic stress disorder: Status: Acute Code(s): F43.10 - Post-traumatic stress disorder, unspecified (6) Elevated homocysteine: Status: Acute Code(s): R79.89 - Other specified abnormal findings of blood chemistry Plan Discharge PHP today Transition to IOP next week continue to reassess clinical need for each medication, as well as other considerations such as risk DDI and polypharmacy in reviewing rationale for trtmt - thus far fluoxetine decrease Prozac to 20 mg qam (plan to taper off - 2D6 interactions w risperidone, other rx interactions WB, gbt, Mitchell - increasing inhibition and may be contributing to constipation, urinary retention) cont Wellbutrin XL 150 mg qam (consider titrating dose if mood declines while tapering off fluoxetine) cont Vyvanse 50 mg qam (better tolerated- consider tapering WB dose increased)) cont prazosin 7 mg/d (split 3 mg AM/ 2 mg noon/ 2 mg 4pm) to manage somatic anxiety/visceral trauma response (may consider lowering to 2 mg TID if BP low on admissions representative) cont risperidone 0.5 mg TID (patient continues to rely on risperidone to manage acute dysregulaton, intrusive SIB) decrease gabapentin to 300 mg BID (AM/afternoon) will get sense if 300 or 400 mg better decrease gabapentin to 900 mg qhs (plan to lower to 600 mg next week as tolerated) cont Latuda 80 mg QD w supper (we are considering whether risperidone will continue to be warranted, perhaps will discont Latuda and continue to titrate for management of depression) cont titration of lamotrigine 50 mg qd (was due for increase to 75 mg earlier this week) benefitted beautiful verbal or whole cont lithium ER 300 mg qd in evening cont naltrexone 25 mg qhs cont L-MTF 7.5 mg qd x 3 mos cont methylated vitamin B complex daily vitamin constipation: improving - continue increased po fluid intake, and psillium husk fiber supplement (not started yet), reviewed allergy meds, tapering fluoxetine urinary retention: slightly improved - will continue to taper off fluoxetine and reassess, will review meds which interact w finasteride will recheck vitals next week will recheck labs and check Li level later next week will continue to monitor at IOP Patient educated on: diagnosis, medication risk/benefits and medical condition Informed Consent: understands Reason for contiued partial hosp. stay Substantial Risk for: stable for discharge and med/psych decompensation Certification I certify that partial hospital treatment is medically necessary due to the symptoms and problems resulting from the patient's mental illness and the failure to treat the patient at the partial hospital level of care would likely result in the patient requiring inpatient psychiatric care which could not be prevented at a less intensive level of care. Total time managing care of this patient today __60__ minutes. Discharge Plan Discharge Attending provider: Jacqueline Chawla Medications: New risperidone 0.25 mg tablet 0.25 mg PO BID Qty: 60 0RF risperidone 1 mg tablet 1 mg PO BID Qty: 30 0RF gabapentin 300 mg capsule 300 mg PO TID Qty: 30 0RF lisdexamfetamine 50 mg capsule 50 mg PO QAM Qty: 10 0RF Rx Instructions: Partial Fill upon patient request. naltrexone 50 mg tablet 25 mg PO BEDTIME Qty: 20 0RF levomefolate calcium 7.5 mg tablet 7.5 mg PO DAILY Qty: 30 2RF clonazepam 0.5 mg tablet 0.5 mg PO DAILY Qty: 16 0RF lurasidone 80 mg tablet 80 mg PO QPM Qty: 30 0RF Rx Instructions: must administer with food (at least 350 calories) dextroamphetamine-amphetamine 10 mg tablet 10 mg PO DAILY PRN (Reason: focus/attention) Qty: 14 0RF Rx Instructions: Partial Fill upon patient request. fluoxetine 20 mg capsule 20 mg PO QAM Qty: 14 0RF tacrolimus 0.03 % ointment 1 appl topical BID Qty: 30 0RF Rx Instructions: for severe atopic dermatitis Continued testosterone cypionate 200 mg/mL oil See Rx Instructions .ROUTE .COMPLEX Rx Instructions: Take 0.4 ml once a week. Patient takes on . hydroxyzine HCl 10 mg tablet 10 - 20 mg PO BID PRN (Reason: Anxiety) finasteride 5 mg tablet 2.5 mg PO DAILY bupropion HCl 150 mg tablet extended release 24 hr 150 mg PO DAILY lorazepam 0.5 mg tablet 0.5 mg PO DAILY PRN (Reason: anxiety) Qty: 12 0RF prazosin 1 mg capsule 1 mg PO BID Qty: 60 0RF Rx Instructions: =Dose Change= (Patient takes 3 mg BID) lithium carbonate 300 mg tablet extended release 300 mg PO DAILY Qty: 30 0RF Changed lamotrigine 25 mg tablet See Rx Instructions .ROUTE .COMPLEX Qty: 90 0RF Rx Instructions: take 2 tablets po daily x 2 weeks, then increase to 3 tablets po daily gabapentin 100 mg capsule 100 mg PO TID Qty: 30 0RF prazosin 2 mg capsule 2 mg PO TID Qty: 90 0RF Rx Instructions: =Dose Change= Patient takes 3 mg (2 mg + 1 mg caps) QAM and 4 mg (2 mg x 2 caps) QHS gabapentin 600 mg tablet 1,200 mg PO BEDTIME Qty: 60 0RF Discontinued ziprasidone HCl 20 mg capsule 20 mg PO BEDTIME oxcarbazepine 600 mg tablet 600 mg PO BID fluoxetine 20 mg Capsule 60 mg PO DAILY Rx Instructions: Take three caps daily. lisdexamfetamine 70 mg capsule 70 mg PO DAILY No Action Zepbound 15 mg/0.5 mL pen injector 15 mg SUBCUT QWEEK Stand Alone Forms: Patient Portal Discharge page Print Language: Kinyarwanda
== END 2024-09-23 23:59 | disposition home or self-care (01) ==
LOC: HO.PHPA 11:00
PROVIDERS: Visit Provider Psychiatry & Neurology Psychiatry
DX: F33.2 Major depressive disorder, recurrent severe without psychotic features (principal); F34.89 Other specified persistent mood disorders; F10.90 Alcohol use, unspecified, uncomplicated; F41.1 Generalized anxiety disorder; F43.10 Post-traumatic stress disorder, unspecified; F60.3 Borderline personality disorder; R79.89 Other specified abnormal findings of blood chemistry; Z86.59 Personal history of other mental and behavioral disorders; Z79.899 Other long term (current) drug therapy
CPT/HCPCS: 90791; 90853

== ENCOUNTER 2024-10-03 11:09 | Emergency (ER) | payer BC, SELFPAY ==
[2024-10-03 11:15] VITALS: BP 126/80; PULSE 85; O2SAT 99
[2024-10-03 11:17] VITALS: BP 115/72; PULSE 64; RESP 16; TEMP 36.2; O2SAT 98; BMI 26.4
--- NOTE | 2024-10-03 11:22 | ED.FALL ---
HPI - Fall General Chief Complaint: Syncope Stated Complaint: FALL @[facility],HIT HEAD,+LOC,-THINNER,+CCOLLAR Time Seen by Provider: 10/03/24 11:20 Source: patient and EMS Mode of arrival: EMS Limitations: no limitations History of Present Illness ED Provider: Dr. Roman HPI Narrative: 44 year old transgendered male PMH anxiety, recurrent hospitalizations for poor impulse control SI, borderline personality disorder, pTSD, MARY, Alcohol use disorder who is here for a ground level fall hitting his head placed in a C collar by EMS. No LOC not on thinner. Patient states he is doing the partial hospital program and had done a squat and felt dizzy and fell hitting the front of his head. Related Data Home Medications ?Medication ?Instructions ?Recorded ?Confirmed bupropion HCl 150 mg 24 hr tablet, 150 mg PO DAILY 08/17/24 09/29/24 extended release finasteride 5 mg tablet 2.5 mg PO DAILY 08/17/24 09/29/24 hydroxyzine HCl 10 mg tablet 10 - 20 mg PO BID PRN Anxiety 08/17/24 09/29/24 testosterone cypionate 200 mg/mL See Rx Instructions .Route .COMPLEX 08/17/24 09/29/24 intramuscular oil tirzepatide (weight loss) 15 15 mg subcut QWEEK 08/17/24 09/29/24 mg/0.5 mL subcutaneous pen injector (Zepbound) Previous Rx's ?Medication ?Instructions ?Recorded risperidone 0.25 mg tablet 0.25 mg PO BID #60 tabs 08/23/24 risperidone 1 mg tablet 1 mg PO BID #30 tabs 08/28/24 gabapentin 300 mg capsule 300 mg PO TID #30 caps 09/04/24 lamotrigine 25 mg tablet See Rx Instructions .Route 09/04/24 .COMPLEX #90 tabs lisdexamfetamine 50 mg capsule 50 mg PO QAM #10 caps 09/04/24 naltrexone 50 mg tablet 25 mg (1/2 x 50 mg) PO BEDTIME #20 09/05/24 tabs levomefolate calcium 7.5 mg tablet 7.5 mg PO DAILY #30 tabs 09/08/24 lorazepam 0.5 mg tablet 0.5 mg PO DAILY PRN anxiety #12 09/08/24 tabs prazosin 1 mg capsule 1 mg PO BID #60 caps 09/08/24 clonazepam 0.5 mg tablet 0.5 mg PO DAILY as directed #16 09/12/24 tabs gabapentin 100 mg capsule 100 mg PO TID as directed #30 caps 09/12/24 lurasidone 80 mg tablet 80 mg PO QPM #30 tabs 09/15/24 prazosin 2 mg capsule 2 mg PO TID as directed, see below 09/15/24 #90 caps gabapentin 600 mg tablet 1,200 mg (2 x 600 mg) PO BEDTIME 09/18/24 as directed #60 tabs lithium carbonate 300 mg 300 mg PO DAILY in evening #30 tabs 09/18/24 tablet,extended release dextroamphetamine-amphetamine 10 10 mg PO DAILY PRN focus/attention 09/20/24 mg tablet #14 tabs fluoxetine 20 mg capsule 20 mg PO QAM #14 caps 09/22/24 tacrolimus 0.03 % topical ointment 1 appl topical BID as directed #30 09/25/24 grams Allergies Allergy/AdvReac Type Severity Reaction Status Date / Time No Known Allergies Allergy Verified 10/03/24 11:21 Review of Systems Review of Systems: Review of systems: General: Patient denies any fever chills recent illness or falls Musculoskeletal: Denies back pain or body aches or other injuries HEENT: denies headache, runny nose, ear pain Respiratory: denies shortness of breath, cough Cardiovascular: no chest pain or palpitations : denies dysuria, frequency Abdomen: no nausea vomiting denies abdominal pain Extremities: no swelling, no pain Skin: no diaphoresis Yes all other systems are reviewed and are negative [facility] Past Medical History Medical History (Updated 10/03/24 @ 11:37 by Tejas Roman DO) Asthma Herniation of intervertebral disc at L3-L4 level Chronic back pain Surgical History (Updated 08/17/24 @ 12:15 by Ursula Falcon RN) H/O: hysterectomy H/O mastectomy Social History Social History Household Members: Spouse and Children Alcohol intake: current Alcohol intake frequency: holidays/special occasions only Comment: WINTER 09/23/24 Patient Tobacco Use Status: Former Tobacco user Tobacco use type: Cigarette Smoked in Last 30 Days: No Use of substances other than those prescribed or required for medical reasons: No Advance Directives: No Advance Directives Information Provided: Yes Physical Exam Vital Signs: Vital Signs: Last Vital Signs Temp 97.2 F 10/03/24 11:17 Pulse 60 10/03/24 11:24 Resp 16 10/03/24 11:24 BP 115/72 10/03/24 11:17 Pulse Ox 98 10/03/24 11:24 O2 Del Method Room Air 10/03/24 11:24 BMI result Body Mass Index 26.4 General: Well-appearing well-nourished in no signs of distress HEENT: Normocephalic atraumatic Neck: No signs of JVD, no masses no tenderness or lymphadenopathy Cardiovascular: Regular rate and rhythm Respiratory: Clear to auscultation bilaterally Abdomen: Soft nontender no masses rectal exam 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 Extremities: Normal pedal pulses no signs of edema Skin: Dry warm no rashes Back: No tenderness full ROM Medical Decision Making Medical Decision Making [facility] Narrative: Syncope, head injury I will get a EKG this sounds like vasovagal syncope I will get a EKG to rule out deadly causes of syncope Differential Diagnosis Differential Diagnoses: The differential diagnosis associated with the presentation includes concussion intracranial injury no other pain did not experience LOC Lab Data [facility] Lab Attestation statement: I reviewed the patient's lab results. Independent Interpretation I performed an independent interpretation of an: EKG Interpretation: rate 64 normal sinus rhythm normal intervals no signs of ischemia no previous for comparison interpreted by me External Record Review External record reviewed: Office record and Outpatient record Discharge Plan Discharge Clinical Impression: Vasovagal syncope, Head injury Patient Disposition: Home, Self-Care Instructions: Syncope (DC), Head Injury (DC) Additional Instructions: You were seen today after passing out after doing a squat and hitting your head. You had a normal EKG done If you have worsening head projectile vomiting or have any other concerns please return to the ER. Prescriptions: No Action testosterone cypionate 200 mg/mL oil See Rx Instructions .ROUTE .COMPLEX Rx Instructions: Take 0.4 ml once a week. Patient takes on . hydroxyzine HCl 10 mg tablet 10 - 20 mg PO BID PRN (Reason: Anxiety) finasteride 5 mg tablet 2.5 mg PO DAILY bupropion HCl 150 mg tablet extended release 24 hr 150 mg PO DAILY Zepbound 15 mg/0.5 mL pen injector 15 mg SUBCUT QWEEK risperidone 0.25 mg tablet 0.25 mg PO BID Qty: 60 0RF risperidone 1 mg tablet 1 mg PO BID Qty: 30 0RF gabapentin 300 mg capsule 300 mg PO TID Qty: 30 0RF lamotrigine 25 mg tablet See Rx Instructions .ROUTE .COMPLEX Qty: 90 0RF Rx Instructions: take 2 tablets po daily x 2 weeks, then increase to 3 tablets po daily lisdexamfetamine 50 mg capsule 50 mg PO QAM Qty: 10 0RF Rx Instructions: Partial Fill upon patient request. naltrexone 50 mg tablet 25 mg PO BEDTIME Qty: 20 0RF lorazepam 0.5 mg tablet 0.5 mg PO DAILY PRN (Reason: anxiety) Qty: 12 0RF prazosin 1 mg capsule 1 mg PO BID Qty: 60 0RF Rx Instructions: =Dose Change= (Patient takes 3 mg BID) levomefolate calcium 7.5 mg tablet 7.5 mg PO DAILY Qty: 30 2RF clonazepam 0.5 mg tablet 0.5 mg PO DAILY Qty: 16 0RF gabapentin 100 mg capsule 100 mg PO TID Qty: 30 0RF prazosin 2 mg capsule 2 mg PO TID Qty: 90 0RF Rx Instructions: =Dose Change= Patient takes 3 mg (2 mg + 1 mg caps) QAM and 4 mg (2 mg x 2 caps) QHS lurasidone 80 mg tablet 80 mg PO QPM Qty: 30 0RF Rx Instructions: must administer with food (at least 350 calories) gabapentin 600 mg tablet 1,200 mg PO BEDTIME Qty: 60 0RF lithium carbonate 300 mg tablet extended release 300 mg PO DAILY Qty: 30 0RF dextroamphetamine-amphetamine 10 mg tablet 10 mg PO DAILY PRN (Reason: focus/attention) Qty: 14 0RF Rx Instructions: Partial Fill upon patient request. fluoxetine 20 mg capsule 20 mg PO QAM Qty: 14 0RF tacrolimus 0.03 % ointment 1 appl topical BID Qty: 30 0RF Rx Instructions: for severe atopic dermatitis Print Language: Thai
[2024-10-03 11:24] VITALS: PULSE 60; RESP 16; O2SAT 98
--- NOTE | 2024-10-03 11:35 | ECG_ITS ---
Test Reason : FALL Blood Pressure : */* mmHG Vent. Rate : 64 BPM Atrial Rate : 64 BPM P-R Int : 164 ms QRS Dur : 92 ms QT Int : 402 ms P-R-T Axes : 71 52 49 degrees QTcB Int : 414 ms Normal sinus rhythm Normal ECG When compared with ECG of 19-Aug-2024 08:43, No significant change was found Referred By: Tejas Roman Electronically Signed By: GEORGIA STYLES MD
[2024-10-03 12:08] VITALS: BP 109/69; PULSE 63; RESP 16; TEMP 36.4; O2SAT 99
[2024-10-03] MEDS: Ibuprofen 400 MG TABLET PO (12:18)
[2024-10-03] MEDS: Acetaminophen 325 MG TABLET 650 MG PO (12:19)
[2024-10-03 12:20] VITALS: BP 109/69; PULSE 63; RESP 16; TEMP 36.4; O2SAT 99
== END 2024-10-03 12:21 | disposition home or self-care (01) ==
PROVIDERS: Emergency Provider Student in an Organized Health Care Education/Training Program; PCP Family Medicine
DX: R55 Syncope and collapse (principal); S09.90XA Unspecified injury of head, initial encounter; W18.39XA Other fall on same level, initial encounter; J45.909 Unspecified asthma, uncomplicated; Y93.B9 Activity, other involving muscle strengthening exercises; Y92.239 Unspecified place in hospital as the place of occurrence of the external cause; Y99.9 Unspecified external cause status
CPT/HCPCS: 93005; 99283; 99285

== ENCOUNTER → 2024-10-03 11:35 | Outpatient (BNV) | payer BC, SELFPAY | PROVIDERS: Emergency Provider Student in an Organized Health Care Education/Training Program; PCP Family Medicine; Visit Provider Internal Medicine Cardiovascular Disease | DX: R55 Syncope and collapse (principal) | CPT/HCPCS: 93010 ==

== ENCOUNTER → 2024-10-05 09:45 | Outpatient (BNV) | payer BC, SELFPAY | PROVIDERS: Visit Provider Psychiatry & Neurology Psychiatry | DX: F90.9 Attention-deficit hyperactivity disorder, unspecified type (principal); L20.9 Atopic dermatitis, unspecified; Z86.59 Personal history of other mental and behavioral disorders; F43.10 Post-traumatic stress disorder, unspecified | CPT/HCPCS: 99213 ==

== ENCOUNTER 2024-10-05 12:28 | Outpatient (REF) | payer BC, SELFPAY ==
[2024-10-05 12:55] LABS: MANUAL DIFF FLAG NO
[2024-10-05 13:11] LABS: Basophils Absolute Auto 0.1 X10*3/uL (0.0-0.2); Eosinophils Absolute Auto 0.3 X10*3/uL (0.0-0.4); Eosinophils Percent Auto 4.3 % (0-4); Hematocrit 47.7 % (37.0-47.0); Hemoglobin 15.9 g/dl (12.0-16.0); Imm Gran Abs Auto 0.01 X10*3/uL (0.00-0.03); Imm Gran Pct Auto 0.2 % (0.0-0.4); Lymphocytes Absolute Auto 1.6 X10*3/uL (1.2-4.9); Lymphocytes Percent Auto 26.7 % (20-40); Mean Corpuscular HGB Conc 33.3 g/dl (31.0-35.0); Mean Corpuscular Hemoglobin 30.5 pg (27.0-33.0); Mean Corpuscular Volume 91.4 fL (80.0-98.0); Mean Platelet Volume 10.5 fL (9.4-12.3); Monocytes Absolute Auto 0.3 X10*3/uL (0.1-1.2); Monocytes Percent Auto 4.3 % (2-11); Neutrophils Absolute Auto 3.7 x10*3/uL (2.0-8.3); Neutrophils Percent Auto 63.5 % (45-73); Platelet Count 230 X10*3/uL (160-400); Red Blood Count 5.22 X10*6/uL (4.20-5.50); Red Cell Distribution Width 12.8 % (11.0-16.0); White Blood Count 5.8 X10*3/uL (4.8-10.8)
[2024-10-05 13:27] LABS: Lithium 0.16 mmol/L (0.60-1.20)
[2024-10-05 13:39] LABS: Anion Gap 13 (12-20); Blood Urea Nitrogen 10 mg/dL (9-16); Calcium 9.7 mg/dL (8.4-10.2); Carbon Dioxide 28 mmol/L (22-29); Chloride 106 mmol/L (96-108); Estimated Glomerular Filt Rate 54; Glucose Random 93 mg/dL (60-115); Potassium 5.1 mmol/L (3.3-5.1); Sodium 142 mmol/L (135-145)
[2024-10-05 13:56] LABS: Free T4 (Free Thyroxine) 0.83 ng/dL (0.71-1.85); Thyroid Stimulating Hormone 1.04 uIU/mL (0.32-4.0)
[2024-10-05 13:57] LABS: HIV AB/AG Nonreactive (Nonreactive); HIV Num 1 0.06 S/CO (0.00-0.99)
[2024-10-06 07:02] LABS: IgA 294 mg/dL (47-310); IgG 987 mg/dL (600-1640); IgM 46 mg/dL (50-300)
== END 2024-10-05 12:29 | disposition home or self-care (01) ==
LOC: HO.LAB 12:28
PROVIDERS: PCP Family Medicine; Visit Provider Psychiatry & Neurology Psychiatry
DX: F39 Unspecified mood [affective] disorder (principal); D72.810 Lymphocytopenia
CPT/HCPCS: 36415; 80048; 80178; 82784; 84439; 84443; 85025; 87389

== ENCOUNTER 2024-10-10 09:45 | Outpatient (RCR) | payer BC, SELFPAY ==
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
[2024-09-29 09:28] VITALS: BMI 26.0
[2024-09-29 09:29] VITALS: BP 94/62; PULSE 72; TEMP 36.7
--- NOTE | 2024-09-29 10:04 | PC.ADMIT ---
Patient is a 44 year old trans-gendered male who uses he/him-they/them pronouns who is a step down from [facility] to [facility] LOC. Patient feeling better since attending [facility] however stated he is still struggling with anxiety and being unemployed at the end of October 2024. 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 Patient also struggling with transitions of care. Patient is alert and oriented x4. He is calm and cooperative. He presented with depressed mood and anxious affect. When asked about SI or self harm patient stated Those have been few and far between, no often . Patient denied any plans or intent. Patient given a copy of his safety plan if needed. Medications updated with [facility] medical record and per patient. Patient reports he is taking medications as prescribed however he stated he forgot to take his evening medications last night. Patient reports rash on his abdomen. Rash has been there for a week or two. Mild rash around abdomen horizontally. Dr. Chawla is aware.
--- NOTE | 2024-09-29 15:20 | HO.IOP ---
This case was opened and review on treatment teams.
--- NOTE | 2024-10-03 11:38 | HO.IOP ---
This clinician called the patient's to notify that he was at the ED to be evaluated after a fall. She indicated to be aware because he has been in communication with her. She reported that he was told that was going to be discharged from the ED.
--- NOTE | 2024-10-03 12:48 | HO.IOP ---
This patient fell in the hallway today and hit his head. He was assisted from the Nurse, the Doctor from the Program and an ambulance was called. He was taken to the ED and this clinician called his and she reported to be aware of the incident and reported that he was going to be discharged from the ED.
--- NOTE | 2024-10-03 13:31 | PC.NURSE ---
Patient's knocked on the staff door stating that Jonny fell and is on the ground. Jonny was found lying face down on the floor in the hallway next to the [facility]. Jonny was alert and oriented x4. Jonny reported that they hit front of head. Redness and some swelling seen on top middle of forehead area. c/o headache. Denied any other injury. Patient reports they were in a squatting position in the hallway and when they went to stand up they felt dizzy and blacked out for a moment then fell to the ground. Dr. Chawla present. 911 called along with outpatient response team. Outpatient response team present. Patient was told not to move until ambulance personal comes and evaluates patient. Patient given a cold compress for forehead. Ambulance came and patient agreed to cervical neck brace. Patient able to get up on their own. VS BP 126/84. Patient taken to [facility] for evaluation via ambulance.
--- NOTE | 2024-10-05 18:04 | P.PNPSP_ITS ---
Subjective Subjective Date of Service: 10/05/24 Reason For Visit: MDD Interim History: Patient seen for follow up. Overall has been doing well. He is experiencing some anxiety about returning for work this week. 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 Overall mood has been more steady he is feeling more emotionally and behaviorally regulated on the medication. We have been dealing with some side effects from his medication regime although patient has been reluctant to make any considerable medication changes ?I am just feeling like I am stable and can finally start functioning in my life . He still feels it is early in the process and is concerned about taking on too much stress which may be due stabilizing. He has been reluctant to try cutting down on some of the doses of his medications. He is on 7 mg of prazosin a day (split ). He had been denying any adverse effects and felt he was tolerating medication well even though his blood pressure was noted to be low-normal at 94/62 on admission to [facility] last week. However in this current week he has experienced 2 near syncopal episodes, on Thursday he had a vasovagal response after squatting in the hallway socializing presumably have stood up too quickly. Also had consumed a glycemic breakfast of cake and caffeine, and also was noted to have gone without his AM Vyvanse which he had run out of that morning, but nonetheless had still taken 3 mg of prazosin. However after reporting getting lightheaded again for a moment last night at home recommend we pullback on his prazosin doses and could allow him some flexibility to increase for times where he is outside the home. Issues with urinary retention and constipation have both improved with tapering of Prozac, and improved hydration. Limiting use of Benadryl. Is considering discontinuing or holding finasteride, although admits he is concerned about potential for hair loss off the finasteride. Left ear rash has resolved with 4 days of tacrolimus, and patient can discontinue this now and continue to apply a barrier cream or lotion for atopic dermatitis especially after showers, but may take PRN for 3 days to treat mod-severe eczema flare-ups. Abdominal rash has faded. No other rashes noted. Medication Compliance: Yes Side effects from medications: Yes (as noted) Attending Groups: Yes Review of Systems Acute medical concerns: No Mental Status Exam Mental Status Exam Narrative: Alert, oriented, in no acute distress. Calm, cooperative, engaged, well-related. No psychomotor agitation or neurovegetative retardation. Eye contact maintained/avoidant when anxious. Mood good, affect variable, mood congruent. Speech normal. Thought process linear, coherent. Thought content related to stressors, denies any hopelessness or SI, denies any thoughts or urges to self harm. Denies any aggressive ideation or HI. No paranoia or delusional content elicited. No evidence of psychosis. Insight improving and judgment intact. Diagnostics Vital Signs (24Hr): BMI result Body Mass Index 26.0 Assessment & Plan Assessment & Plan (1) Complex posttraumatic stress disorder: Status: Acute Code(s): F43.10 - Post-traumatic stress disorder, unspecified (2) Other mixed anxiety disorders: Status: Acute Code(s): F41.3 - Other mixed anxiety disorders (3) Other specified persistent mood disorders: Status: Acute Code(s): F34.89 - Other specified persistent mood disorders (4) Attention-deficit hyperactivity disorder, unspecified type: Status: Acute Code(s): F90.9 - Attention-deficit hyperactivity disorder, unspecified type (5) History of borderline personality disorder: Status: Acute Code(s): Z86.59 - Personal history of other mental and behavioral disorders (6) Alcohol use disorder: Status: Acute Code(s): F10.90 - Alcohol use, unspecified, uncomplicated (7) Atopic dermatitis and related condition: Status: Acute Code(s): L20.9 - Atopic dermatitis, unspecified Plan Continue IOP taper off Prozac 20 mg qam (urinary retention improving with reduction in dose from 60 mg) cont Wellbutrin XL 150 mg qam cont Vyvanse 50 mg qam lower prazosin to 5-6 mg/d (split 2 mg AM/ 2 mg noon/ 1 mg 4pm and 1 mg PRN) to manage somatic anxiety/trauma response cont risperidone 0.5 mg TID (patient continues to rely on risperidone to manage acute dysregulaton, intrusive SIB urges) cont gabapentin 300 mg TID cont gabapentin 300 mg PRN anxiety, sleep cont gabapentin 600 mg qhs titrate dose of lamotrigine to 100 mg qd over weekend cont Latuda 80 mg QD w supper (plan to decrease once lamotrigine therapeutic) also still relying on risperidone cont lithium ER 300 mg qd in evening (Li level 0.16 @300 mg on 10/05) cont naltrexone 25 mg qhs cont L-MTF 7.5 mg qd x 3 mos cont methylated vitamin B complex daily vitamin completed 3 days of tacrolimus to left ear over weekend - rash resolved (c ontinue on prn basis fro atopic dermatitis) constipation: resolved - po fluid intake, psillium husk fiber supplement urinary retention: improving with reduction in fluoxetine, plan to taper off this week pending lab work continue to monitor Patient educated on: diagnosis, medication risk/benefits and medical condition Informed Consent: understands Reason for contiued partial hosp. stay Substantial Risk for: med/psych decompensation Certification I certify that the patient needs IOP Services for a minimum of 9 hours per week of therapeutic services. I certify the patient is experiencing symptoms of such intensity that they are unable to be safely treated in a less intensive setting and would otherwise require?admission to a more intensive level of care Total time managing care of this patient today _40___ minutes. Discharge Plan Discharge Attending provider: Jacqueline Chawla Medications: New lurasidone [Latuda] 60 mg tablet 60 mg PO QPM Qty: 30 0RF Rx Instructions: must administer with food (at least 350 calories) lamotrigine 100 mg tablet 100 mg PO DAILY Qty: 30 0RF risperidone 0.5 mg tablet 0.5 mg PO TID Qty: 90 0RF Continued testosterone cypionate 200 mg/mL oil See Rx Instructions .ROUTE .COMPLEX Rx Instructions: Take 0.4 ml once a week. Patient takes on . finasteride 5 mg tablet 2.5 mg PO DAILY bupropion HCl 150 mg tablet extended release 24 hr 150 mg PO DAILY Zepbound 15 mg/0.5 mL pen injector 15 mg SUBCUT QWEEK naltrexone 50 mg tablet 25 mg PO BEDTIME Qty: 20 0RF lorazepam 0.5 mg tablet 0.5 mg PO DAILY PRN (Reason: anxiety) Qty: 12 0RF levomefolate calcium 7.5 mg tablet 7.5 mg PO DAILY Qty: 30 2RF clonazepam 0.5 mg tablet 0.5 mg PO DAILY Qty: 16 0RF gabapentin 100 mg capsule 100 mg PO TID Qty: 30 0RF dextroamphetamine-amphetamine 10 mg tablet 10 mg PO DAILY PRN (Reason: focus/attention) Qty: 14 0RF Rx Instructions: Partial Fill upon patient request. tacrolimus 0.03 % ointment 1 appl topical BID Qty: 30 0RF Rx Instructions: for severe atopic dermatitis lithium carbonate 300 mg tablet extended release 300 mg PO DAILY Qty: 30 0RF lisdexamfetamine 50 mg capsule 50 mg PO QAM Qty: 30 0RF Rx Instructions: For ADHD. Partial Fill upon patient request. prazosin 2 mg capsule 2 mg PO TID Qty: 90 0RF prazosin 1 mg capsule 1 mg PO BID Qty: 60 0RF Changed gabapentin 300 mg capsule 300 mg PO QID Qty: 30 0RF gabapentin 600 mg tablet 600 mg PO BEDTIME Qty: 45 0RF Discontinued hydroxyzine HCl 10 mg tablet 10 - 20 mg PO BID PRN (Reason: Anxiety) risperidone 0.25 mg tablet 0.25 mg PO BID Qty: 60 0RF risperidone 1 mg tablet 1 mg PO BID Qty: 30 0RF lamotrigine 25 mg tablet See Rx Instructions .ROUTE .COMPLEX Qty: 90 0RF Rx Instructions: take 2 tablets po daily x 2 weeks, then increase to 3 tablets po daily lurasidone 80 mg tablet 80 mg PO QPM Qty: 30 0RF Rx Instructions: must administer with food (at least 350 calories) fluoxetine 20 mg capsule 20 mg PO QAM Qty: 14 0RF Stand Alone Forms: Patient Portal Discharge page Print Language: [place] Islander
--- NOTE | 2024-10-07 11:12 | P.PNPSP_ITS ---
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, remote, 10/03/24 still struggling to focus and complete - completed short term disab paperwork - Thursday dx date from IOP- going to DBT program at [facility]- 12:30 supposed to see therapist at 2pm that day- not heard- reviewed meds risperidone- taper latuda 60mg lamotrigine 50mg also gabapentin 300mg qid, 600mg at bed- and lamotrigine- 75mg not 50mg Medication Compliance: Yes Side effects from medications: Yes (syncopal episode thursday) Attending Groups: Yes Review of Systems Acute medical concerns: Yes had syncopal episode thursday caffeine, and sugar, and had not taken vyvanse- but had taken propranlol- squatting coming to standing position- still some dizziness/lightheadedness- been happening Review of Systems: word finding(? combo of gabapentin /lamotrigine) ; and ? mild rash resolved- dr brown thought eczema Mental Status Exam Mental Status Exam Patient Appearance: Well Grooomed and Appropriate Patient Orientation: Person, Place, Time and Situation Level of Consciousness: Awake and Alert Patient Behavior: Appropriate, Cooperative and Poor Eye Contact Mood Description: Anxious Affect Description: Blunted Patient Cognition Impaired: No Ability to Follow Directions: Good Speech Pattern: Clear Hallucinations: None Delusions: Not Present Perceptual Disturbances: Depersonalization Thought Process: Intact and Goal Oriented Thought Content: positive for Intact Depressive Symptoms: Difficulty Concentrating Judgement: Good Judgement and Insight: slightly confused about medication changes and doses Diagnostics Vital Signs (24Hr): BMI result Body Mass Index 26.0 Assessment & Plan Assessment & Plan (1) Borderline personality disorder: Status: Acute Code(s): F60.3 - Borderline personality disorder (2) Complex posttraumatic stress disorder: Status: Acute Code(s): F43.10 - Post-traumatic stress disorder, unspecified (3) Other specified persistent mood disorders: Status: Acute Code(s): F34.89 - Other specified persistent mood disorders Plan Clarified confusion around medications - Latuda will be tapered down to 60mg as on risperidone now Should go down to 600mg on gabapentin at night (? drop 300mg to tid instead of qid) Inc lamotrigine to 75mg as per dr brown preference watch for word finding/concentration issues may want to taper off gabapentin more rapidly Patient educated on: medication risk/benefits and therapeutic strategies Informed Consent: understands Reason for contiued partial hosp. stay Substantial Risk for: harm to self and rapid decompensation Certification I certify that partial hospital treatment is medically necessary due to the symptoms and problems resulting from the patient's mental illness and the failure to treat the patient at the partial hospital level of care would likely result in the patient requiring inpatient psychiatric care which could not be prevented at a less intensive level of care. Total time managing care of this patient today ____ minutes. Discharge Plan Discharge Attending provider: Jacqueline Chawla Medications: New lamotrigine 100 mg tablet 100 mg PO DAILY Qty: 30 0RF risperidone 0.5 mg tablet 0.5 mg PO TID Qty: 90 0RF Continued testosterone cypionate 200 mg/mL oil See Rx Instructions .ROUTE .COMPLEX Rx Instructions: Take 0.4 ml once a week. Patient takes on . finasteride 5 mg tablet 2.5 mg PO DAILY bupropion HCl 150 mg tablet extended release 24 hr 150 mg PO DAILY Zepbound 15 mg/0.5 mL pen injector 15 mg SUBCUT QWEEK naltrexone 50 mg tablet 25 mg PO BEDTIME Qty: 20 0RF levomefolate calcium 7.5 mg tablet 7.5 mg PO DAILY Qty: 30 2RF clonazepam 0.5 mg tablet 0.5 mg PO DAILY Qty: 16 0RF dextroamphetamine-amphetamine 10 mg tablet 10 mg PO DAILY PRN (Reason: focus/attention) Qty: 14 0RF Rx Instructions: Partial Fill upon patient request. tacrolimus 0.03 % ointment 1 appl topical BID Qty: 30 0RF Rx Instructions: for severe atopic dermatitis lithium carbonate 300 mg tablet extended release 300 mg PO DAILY Qty: 30 0RF lisdexamfetamine 50 mg capsule 50 mg PO QAM Qty: 30 0RF Rx Instructions: For ADHD. Partial Fill upon patient request. Changed gabapentin 300 mg capsule 300 mg PO QID Qty: 30 0RF gabapentin 600 mg tablet 600 mg PO BEDTIME Qty: 45 0RF prazosin 1 mg capsule 1 mg PO DAILY Qty: 60 0RF prazosin 2 mg capsule 2 mg PO BID Qty: 90 0RF Discontinued hydroxyzine HCl 10 mg tablet 10 - 20 mg PO BID PRN (Reason: Anxiety) risperidone 0.25 mg tablet 0.25 mg PO BID Qty: 60 0RF risperidone 1 mg tablet 1 mg PO BID Qty: 30 0RF lamotrigine 25 mg tablet See Rx Instructions .ROUTE .COMPLEX Qty: 90 0RF Rx Instructions: take 2 tablets po daily x 2 weeks, then increase to 3 tablets po daily lorazepam 0.5 mg tablet 0.5 mg PO DAILY PRN (Reason: anxiety) Qty: 12 0RF gabapentin 100 mg capsule 100 mg PO TID Qty: 30 0RF lurasidone 80 mg tablet 80 mg PO QPM Qty: 30 0RF Rx Instructions: must administer with food (at least 350 calories) fluoxetine 20 mg capsule 20 mg PO QAM Qty: 14 0RF Stand Alone Forms: Patient Portal Discharge page Print Language: [place]
--- NOTE | 2024-10-10 09:50 | P.PNPSP_ITS ---
Subjective Subjective Date of Service: 10/10/24 Reason For Visit: MDD Healthcare Proxy: No Guardianship: No Medical Problems Affecting Mental Status: No Interim History: 44 yo transmale with hx si- discharging after php then down to iop - sleep is good- antipsychotics and gabapentin are helping sleep energy ok - some dip with having to grade and be back full tiem in life and anxiety about post dc had episode of sycopal/orthostatic - lowered prazosin none since- lightheaded now and then but not where felt would fall - Medication Compliance: Yes Side effects from medications: No Attending Groups: Yes Review of Systems Acute medical concerns: No Medical Review of Systems: unchanged Review of Systems: some lightheadedness some abd eczema- and ear - suggested also taking ointment Mental Status Exam Mental Status Exam Patient Appearance: Well Grooomed and Appropriate Patient Orientation: Person, Place, Time and Situation Level of Consciousness: Awake and Appropriate Patient Behavior: Appropriate and Cooperative Mood Description: Apprehensive Affect Description: Blunted Patient Cognition Impaired: No Ability to Follow Directions: Good Speech Pattern: Clear Thought Process: Intact and Goal Oriented Thought Content: positive for Intact Depressive Symptoms: Increased Anxiety (around dc and transition to service [facility] dbt who has not gotten back to him) Judgement: Good Diagnostics Vital Signs (24Hr): BMI result Body Mass Index 26.0 Assessment & Plan Assessment & Plan (1) Attention-deficit hyperactivity disorder, unspecified type: Status: Acute Code(s): F90.9 - Attention-deficit hyperactivity disorder, unspecified type (2) Atopic dermatitis and related condition: Status: Acute Code(s): L20.9 - Atopic dermatitis, unspecified (3) History of borderline personality disorder: Status: Acute Code(s): Z86.59 - Personal history of other mental and behavioral disorders (4) Complex posttraumatic stress disorder: Status: Acute Code(s): F43.10 - Post-traumatic stress disorder, unspecified Plan lamotrigine at 75mg till sees dr Bravo next week as outpatient dc to [facility] pending dbt program for 6 months- hoping to have something by thursday next continued Dr bravo med plan till then Patient educated on: medication risk/benefits and therapeutic strategies Informed Consent: understands Reason for contiued partial hosp. stay Substantial Risk for: stable for discharge Certification I certify that partial hospital treatment is medically necessary due to the symptoms and problems resulting from the patient's mental illness and the failure to treat the patient at the partial hospital level of care would likely result in the patient requiring inpatient psychiatric care which could not be prevented at a less intensive level of care. Total time managing care of this patient today ____ minutes. Discharge Plan Discharge Attending provider: Jacqueline Chawla Additional Instructions: will fu with dr Chawla for psychopharm and [facility] for dbt Medications: New lamotrigine 100 mg tablet 100 mg PO DAILY Qty: 30 0RF risperidone 0.5 mg tablet 0.5 mg PO TID Qty: 90 0RF lurasidone [Latuda] 60 mg tablet 60 mg PO QPM Qty: 1 0RF Rx Instructions: must administer with food (at least 350 calories) Continued testosterone cypionate 200 mg/mL oil See Rx Instructions .ROUTE .COMPLEX Rx Instructions: Take 0.4 ml once a week. Patient takes on . finasteride 5 mg tablet 2.5 mg PO DAILY bupropion HCl 150 mg tablet extended release 24 hr 150 mg PO DAILY Zepbound 15 mg/0.5 mL pen injector 15 mg SUBCUT QWEEK naltrexone 50 mg tablet 25 mg PO BEDTIME Qty: 20 0RF levomefolate calcium 7.5 mg tablet 7.5 mg PO DAILY Qty: 30 2RF dextroamphetamine-amphetamine 10 mg tablet 10 mg PO DAILY PRN (Reason: focus/attention) Qty: 14 0RF Rx Instructions: Partial Fill upon patient request. tacrolimus 0.03 % ointment 1 appl topical BID Qty: 30 0RF Rx Instructions: for severe atopic dermatitis lithium carbonate 300 mg tablet extended release 300 mg PO DAILY Qty: 30 0RF lisdexamfetamine 50 mg capsule 50 mg PO QAM Qty: 30 0RF Rx Instructions: For ADHD. Partial Fill upon patient request. Changed gabapentin 600 mg tablet 600 mg PO BEDTIME Qty: 45 0RF prazosin 1 mg capsule 1 mg PO DAILY Qty: 60 0RF prazosin 2 mg capsule 2 mg PO BID Qty: 90 0RF gabapentin 300 mg capsule 300 mg PO QD-TID Qty: 30 0RF Rx Instructions: take as TID, and one capsule PRN anxiety, sleep Discontinued hydroxyzine HCl 10 mg tablet 10 - 20 mg PO BID PRN (Reason: Anxiety) risperidone 0.25 mg tablet 0.25 mg PO BID Qty: 60 0RF risperidone 1 mg tablet 1 mg PO BID Qty: 30 0RF lamotrigine 25 mg tablet See Rx Instructions .ROUTE .COMPLEX Qty: 90 0RF Rx Instructions: take 2 tablets po daily x 2 weeks, then increase to 3 tablets po daily lorazepam 0.5 mg tablet 0.5 mg PO DAILY PRN (Reason: anxiety) Qty: 12 0RF clonazepam 0.5 mg tablet 0.5 mg PO DAILY Qty: 16 0RF gabapentin 100 mg capsule 100 mg PO TID Qty: 30 0RF lurasidone 80 mg tablet 80 mg PO QPM Qty: 30 0RF Rx Instructions: must administer with food (at least 350 calories) fluoxetine 20 mg capsule 20 mg PO QAM Qty: 14 0RF Referrals: Jacqueline Chawla MD [Physician] - 1 Week (as scheduled (or tba)) Stand Alone Forms: Patient Portal Discharge page Print Language: Andorran
== END 2024-10-10 23:59 | disposition home or self-care (01) ==
LOC: HO.IOP 09:45
PROVIDERS: Visit Provider Psychiatry & Neurology Psychiatry
DX: F43.10 Post-traumatic stress disorder, unspecified (principal); F41.3 Other mixed anxiety disorders; F34.89 Other specified persistent mood disorders; F90.9 Attention-deficit hyperactivity disorder, unspecified type; F10.90 Alcohol use, unspecified, uncomplicated; F60.3 Borderline personality disorder; L20.9 Atopic dermatitis, unspecified; Z86.59 Personal history of other mental and behavioral disorders; Z79.899 Other long term (current) drug therapy
CPT/HCPCS: 90791; S9480

== ENCOUNTER → 2025-02-28 09:31 | Outpatient (REF) | payer OTHER, SELFPAY ==
--- NOTE | 2025-02-28 09:46 | ECG_ITS ---
Test Reason : QTC CHECK Blood Pressure : */* mmHG Vent. Rate : 66 BPM Atrial Rate : 66 BPM P-R Int : 154 ms QRS Dur : 92 ms QT Int : 376 ms P-R-T Axes : 75 48 45 degrees QTcB Int : 394 ms Normal sinus rhythm with sinus arrhythmia Normal ECG When compared with ECG of 03-Oct-2024 11:51, No significant change was found Referred By: Jacqueline Chawla Electronically Signed By: GEORGIA STYLES MD
[2025-02-28 10:10] LABS: MANUAL DIFF FLAG NO
[2025-02-28 10:35] LABS: Hematocrit 43.8 % (37.0-47.0); Hemoglobin 14.8 g/dl (12.0-16.0); Imm Gran Abs Auto 0.01 X10*3/uL (0.00-0.03); Imm Gran Pct Auto 0.1 % (0.0-0.4); Lymphocytes Absolute Auto 1.5 X10*3/uL (1.2-4.9); Mean Corpuscular HGB Conc 33.8 g/dl (31.0-35.0); Mean Corpuscular Hemoglobin 29.7 pg (27.0-33.0); Mean Corpuscular Volume 87.8 fL (80.0-98.0); NRBC Abs Auto 0.000 X10*3/uL (0.0-0.012); NRBC Pct Auto 0.0 /100WBC (0.0-0.2); Platelet Count 258 X10*3/uL (160-400); Red Blood Count 4.99 X10*6/uL (4.20-5.50); White Blood Count 7.4 X10*3/uL (4.8-10.8)
[2025-02-28 11:07] LABS: Lithium 0.11 mmol/L (0.60-1.20)
[2025-02-28 11:11] LABS: Alanine Aminotransferase 32 U/L (0-31); Albumin Level 4.5 g/dL (3.5-5.0); Alkaline Phosphatase 86 U/L (39-117); Anion Gap 14 (12-20); Aspartate Amino Transferase 27 U/L (5-31); Blood Urea Nitrogen 13 mg/dL (9-16); Calcium 9.5 mg/dL (8.4-10.2); Carbon Dioxide 28 mmol/L (22-29); Chloride 107 mmol/L (96-108); Estimated Glomerular Filt Rate 46; Potassium 4.3 mmol/L (3.3-5.1); Sodium 145 mmol/L (135-145); Total Protein 7.2 g/dL (6.5-8.0)
== END ==
LOC: HO.CARD 09:31
PROVIDERS: PCP Family Medicine; Visit Provider Psychiatry & Neurology Psychiatry
DX: F31.81 Bipolar II disorder (principal); G62.9 Polyneuropathy, unspecified; I45.81 Long QT syndrome; Z13.1 Encounter for screening for diabetes mellitus
CPT/HCPCS: 36415; 80053; 80178; 82550; 83036; 85025; 85652; 86140; 93005

== ENCOUNTER → 2025-02-28 09:46 | Outpatient (BNV) | payer OTHER, SELFPAY | PROVIDERS: PCP Family Medicine; Visit Provider Internal Medicine Cardiovascular Disease | DX: Z13.6 Encounter for screening for cardiovascular disorders (principal) | CPT/HCPCS: 93010 ==